=== PATIENT | male | born 1965 | race Caucasian/White ===

== ENCOUNTER 2016-12-18 10:42 | Inpatient (IN) | payer OTHER ==
[~2016-12-18] VITALS: Ht 177.8 cm; Wt 145.9 kg
[2016-12-18 10:53] VITALS: BP 139/65; PULSE 80; RESP 15; TEMP 98; O2SAT 98
[2016-12-18] MEDS ORDERED: SODIUM CHLOR 0.9% 1000 ML INJ 1,000 ML IV SCH (10:56)
[2016-12-18] MEDS ORDERED: HYDROmorphone HCL PF 1 MG/ML VIAL IV PUSH ONE ×2 (11:00→12:30)
[2016-12-18] MEDS ORDERED: DIPHTH/TETANUS/ACEL PERTUSSIS (BOOSTER) 0.5 ML VIAL/PFS IM ONE (11:00)
[2016-12-18] MEDS ORDERED: ceFAZolin 2 GM PREMIX 50 ML IV ONE (11:00)
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
[2016-12-18] MEDS ORDERED: HYDROmorphone HCL PF 2 MG/ML VIAL IV PUSH ONE (11:15)
[2016-12-18 11:25] VITALS: BP 151/67; PULSE 86; RESP 15; O2SAT 98
[2016-12-18 11:27] LABS: AUTOMATED NEUTROPHIL # 7.3 TH/MM3 (1.8-7.7); BASOPHIL # 0.1 TH/MM3 (0-0.2); BASOPHIL % 1.2 % (0.0-2.0); EOSINOPHIL # 0.2 TH/MM3 (0-0.4); EOSINOPHIL % 1.4 % (0.0-4.0); HEMATOCRIT 42.4 % (39.0-51.0); HEMO FLAGS DIFF FINAL; LYMPH % 31.2 % (9.0-44.0); LYMPHOCYTE # 3.8 TH/MM3 (1.0-4.8); MEAN CELL VOLUME 87.9 FL (80.0-100.0); MEAN CORPUSCULAR HEMOGLOBIN 30.1 PG (27.0-34.0); MEAN CORPUSCULAR HGB CONC 34.2 % (32.0-36.0); MONO % 6.6 % (0.0-8.0); NEUT % 59.6 % (16.0-70.0); PLATELET COUNT 304 TH/MM3 (150-450); RED BLOOD COUNT 4.82 MIL/MM3 (4.50-5.90); RED CELL DISTRIBUTION WIDTH 13.2 % (11.6-17.2); WHITE BLOOD COUNT 12.3 TH/MM3 (4.0-11.0)
[2016-12-18 11:38] LABS: APTT (PATIENT) 25.7 SEC (24.3-30.1); PROTHROMBIN TIME - PATIENT 11.3 SEC (9.8-11.6)
[2016-12-18 11:43] LABS: BICARBONATE 24.3 MEQ/L (21.0-32.0); POTASSIUM 3.5 MEQ/L (3.5-5.1)
[2016-12-18] MEDS ORDERED: PROPOFOL 200 MG/20 ML AMP IV ONE (12:00)
[2016-12-18] MEDS ORDERED: LACTATED RINGER'S 1000 ML INJ 1,000 ML IV ONE (12:00)
[2016-12-18] MEDS ORDERED: PHENYLEPH/NS 1000 MCG/10 ML SYR IV ONE (12:00)
[2016-12-18] MEDS ORDERED: ONDANSETRON HCL 4 MG/2 ML VIAL IV PUSH ONE (12:00)
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
[2016-12-18 12:19] VITALS: BP 185/77; PULSE 92; RESP 17; O2SAT 98
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
[2016-12-18] MEDS ORDERED: ONDANSETRON HCL 4 MG/2 ML VIAL IV PUSH PRN (14:00)
[2016-12-18] MEDS ORDERED: HYDROmorphone HCL PF 1 MG/ML VIAL IV PUSH PRN (14:00)
[2016-12-18 14:03] VITALS: BP 174/75; PULSE 85; RESP 18; O2SAT 98
[2016-12-18] MEDS: SODIUM CHLOR 0.9% 1000 ML INJ 1,000 ML IV SCH ×3 (15:40→21:25)
[2016-12-18] MEDS ORDERED: ENALAPRILAT 1.25 MG/ML VIAL IV PUSH PRN (15:45)
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
[2016-12-18] MEDS ORDERED: FAMOTIDINE 20 MG/2 ML VIAL ONE (16:45)
[2016-12-18] MEDS ORDERED: MIDAZOLAM HCL 2 MG/2 ML VIAL ONE (16:45)
[2016-12-18] MEDS ORDERED: fentaNYL CITRATE 250 MCG/5 ML AMP ONE ×2 (16:45→18:59)
[2016-12-18] MEDS ORDERED: DEXAMETHASONE SOD PHOS 4 MG/ML VIAL ONE (16:45)
[2016-12-18] MEDS ORDERED: BUPIVACAINE HCL PF 0.25% 30 ML VIAL ONE (16:48)
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
[2016-12-18] MEDS ORDERED: ceFAZolin INJ 1,000 MG VIAL ONE (17:02)
[2016-12-18] MEDS ORDERED: GENTAMICIN SULFATE 80 MG/2 ML VIAL ONE ×4 (17:02→18:03)
--- NOTE | 2016-12-18 17:03 | EKG ---
Date Performed: 12/18/2016 Time Performed: 16:46:54 PTAGE: 51 years EKG: Sinus rhythm NORMAL ECG NO PREVIOUS TRACING DOCTOR: Dayo Schneider Interpretating Date/Time 12/18/2016 17:02:13
[2016-12-18] MEDS: GENTAMICIN 80 MG PREMIX 100 ML IV SCH (18:00)
[2016-12-18] MEDS ORDERED: MORPHINE SULFATE 4 MG/ML INJ ONE (18:59)
[2016-12-18] MEDS ORDERED: *morphine SULFATE 8 MG/ML PERIprocedure ONLY ONE (19:03)
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
[2016-12-18] MEDS: HYDROmorphone HCL PF 1 MG/ML VIAL IV PUSH PRN (19:15)
[2016-12-18] MEDS ORDERED: *HYDROmorphone PF 1 MG VIAL PERIprocedural Use ONLY ONE (19:37)
[2016-12-18] MEDS ORDERED: CEFAZOLIN INJ 2,000 MG in SODIUM CHLORIDE 0.9% INJ 100 ML IV SCH (20:00)
--- NOTE | 2016-12-18 20:16 | RADRPT ---
EXAM DATE/TIME: 12/18/2016 19:04 [facility] COMPARISON: MRI FOOT LEFT W/O CONTRAST, December 18, 2016, 14:22. ANKLE LEFT COMPLETE ([id number]), December 18, 2016, 19 :12. INDICATIONS : Foot pain. MEDICAL HISTORY : None. SURGICAL HISTORY : None. ENCOUNTER: Initial ACUITY: 1 day PAIN SCORE: 0/10 LOCATION: Left foot FINDINGS: The fracture is identified on the patient's prior MRI are not clearly visualized and bony detail is o bscured by casting material. The alignment however is anatomical. Calcaneal spur is present at the at tachment site of the plantar aponeurosis. CONCLUSION: Fractures identified on the patient's prior MRI are not clearly visualized, however alignment is allen omical. Song Canas MD on December 18, 2016 at 20:13 Board Certified Radiologist. This report was verified electronically.
--- NOTE | 2016-12-18 20:21 | RADRPT ---
EXAM DATE/TIME: 12/18/2016 19:12 [facility] COMPARISON: FOOT LEFT COMPLETE ([id number]), December 18, 2016, 19:04. MRI FOOT LEFT W/O CONTRAST, December 18, 2016, 14: 22. MRI ANKLE LEFT W/O CONTRAST, December 18, 2016, 14:22. INDICATIONS : Ankle pain. MEDICAL HISTORY : None. SURGICAL HISTORY : None. ENCOUNTER: Initial ACUITY: 1 day PAIN SCORE: 0/10 LOCATION: Left ankle FINDINGS: The fractures identified on the patient's MRI examination are not visualized, however alignment is an atomical. Calcaneal spur is present at the attachment site of the plantar aponeurosis. CONCLUSION: The fractures identified on the patient's MRI examination are not visualized, however alignment is an atomical. Song Canas MD on December 18, 2016 at 20:17 Board Certified Radiologist. This report was verified electronically.
[2016-12-18 20:50] VITALS: BP 141/67; PULSE 85; RESP 24; TEMP 97.4; O2SAT 95
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
[2016-12-18] MEDS: ACETAMINOPHEN/HYDROcodone 325 MG/10 MG TAB PO PRN (21:26)
[2016-12-18 21:56] VITALS: O2SAT 95
[2016-12-19] VITALS (8 sets, daily range): BP systolic 113–142; BP diastolic 55–73; PULSE 70–94; RESP 16–20; TEMP 96.4–98; O2SAT 93–98
[2016-12-19] MEDS ORDERED: CEFAZOLIN INJ 2,000 MG in SODIUM CHLORIDE 0.9% INJ 100 ML IV SCH ×2
[2016-12-19] MEDS ORDERED: cefTRIAXone 2 GM PREMIX INJ 50 ML IV SCH (00:02)
[2016-12-19] MEDS: ceFAZolin 2 GM PREMIX 50 ML IV SCH ×4 (00:11→23:17)
[2016-12-19] MEDS: HYDROmorphone HCL PF 1 MG/ML VIAL IV PUSH PRN ×8 (00:11→23:15)
[2016-12-19] MEDS: GENTAMICIN 80 MG PREMIX 100 ML IV SCH ×3 (02:51→17:24)
[2016-12-19] MEDS: ACETAMINOPHEN/HYDROcodone 325 MG/10 MG TAB PO PRN ×4 (02:51→22:03)
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
[2016-12-19] MEDS: SODIUM CHLORIDE 0.9% FLUSH 10 ML FLUSH IVF PRN (14:07)
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
[2016-12-19] MEDS: SODIUM CHLOR 0.9% 1000 ML INJ 1,000 ML IV SCH (19:04)
[2016-12-19] MEDS ORDERED: Gentamicin Consult Pharmacy 1 EA OTHER SCH (20:15)
[2016-12-19] MEDS ORDERED: GENTAMICIN INJ 150 MG in SODIUM CHLORIDE 0.9% INJ 100 ML IV ONE (22:00)
[2016-12-19] MEDS: GENTAMICIN INJ 200 MG in SODIUM CHLORIDE 0.9% INJ 100 ML IV SCH (22:00)
[2016-12-19] MEDS ORDERED: POVIDONE IODINE 5% (ANTISEPSIS KIT) 4 APPLICATIONS EACH NARE PRN (23:45)
[2016-12-19] MEDS ORDERED: SODIUM CHLORID 0.9% 500 ML IV PRN (23:45)
[2016-12-19] MEDS ORDERED: LACTATED RINGER'S 1000 ML IV PRN (23:45)
[2016-12-19] MEDS ORDERED: CHLORHEXIDINE GLUCONATE 2 % 1 PACK (2 CLOTHS) TOPICAL PRN (23:45)
[2016-12-19] MEDS ORDERED: INSULIN HUMAN REGULAR 1,000 UNITS/10 ML VIAL SQ PRN (23:45)
[2016-12-19] MEDS ORDERED: METOPROLOL TARTRATE 25 MG TAB PO PRN (23:45)
[2016-12-20] VITALS: BP 118/59; PULSE 76; RESP 18; TEMP 96.5; O2SAT 96
[2016-12-20] MEDS: ACETAMINOPHEN/HYDROcodone 325 MG/10 MG TAB PO PRN ×4 (02:00→18:38)
[2016-12-20] MEDS: HYDROmorphone HCL PF 1 MG/ML VIAL IV PUSH PRN ×5 (03:12→17:32)
[2016-12-20 04:45] VITALS: BP 117/57; PULSE 73; RESP 20; TEMP 96.8; O2SAT 94
[2016-12-20] MEDS ORDERED: BUPIVACAINE HCL PF 0.5% 30 ML VIAL ONE (07:59)
[2016-12-20] MEDS ORDERED: GENTAMICIN SULFATE 80 MG/2 ML VIAL ONE (07:59)
[2016-12-20 08:00] VITALS: BP 121/60; PULSE 88; RESP 18; TEMP 97.2; O2SAT 98
[2016-12-20] MEDS: ceFAZolin 2 GM PREMIX 50 ML IV SCH ×2 (08:00→16:18)
[2016-12-20 08:01] LABS: ALKALINE PHOSPHATASE 69 U/L (45-117); ALT (GPT) 21 U/L (12-78); ANION GAP 6 MEQ/L (5-15); AST (GOT) 20 U/L (15-37); BICARBONATE 32.1 MEQ/L (21.0-32.0); BLOOD UREA NITROGEN 10 MG/DL (7-18); CHLORIDE 106 MEQ/L (98-107); GLOMERULAR FILTRATION RATE 90 ML/MIN (>89); SODIUM (NA) 144 MEQ/L (136-145); TOTAL BILIRUBIN ADULT 0.3 MG/DL (0.2-1.0)
[2016-12-20] MEDS ORDERED: fentaNYL CITRATE 250 MCG/5 ML AMP ONE (08:43)
[2016-12-20] MEDS ORDERED: ACETAMINOPHEN 1000 MG/100 ML VIAL IV ONE (08:44)
[2016-12-20] MEDS ORDERED: FAMOTIDINE 20 MG/2 ML VIAL ONE (08:44)
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
[2016-12-20] MEDS ORDERED: NEOMYCIN/POLYMYXIN 1 ML G.U. IRRIGANT TOPICAL ONE (09:29)
[2016-12-20] MEDS ORDERED: PROPOFOL 200 MG/20 ML AMP IV ONE (09:52)
[2016-12-20] MEDS ORDERED: ONDANSETRON HCL 4 MG/2 ML VIAL IV PUSH ONE (09:52)
[2016-12-20] MEDS ORDERED: GENTAMICIN INJ 200 MG in SODIUM CHLORIDE 0.9% INJ 100 ML IV SCH (10:00)
[2016-12-20] MEDS ORDERED: BUPIVACAINE HCL PF 0.5% 30 ML VIAL INFIL ONE (10:00)
[2016-12-20] MEDS: GENTAMICIN INJ 200 MG in SODIUM CHLORIDE 0.9% INJ 100 ML IV SCH ×2 (10:00→22:05)
[2016-12-20] MEDS ORDERED: ceFAZolin INJ 1,000 MG VIAL IV ONE (10:24)
[2016-12-20] MEDS ORDERED: *morphine SULFATE 8 MG/ML PERIprocedure ONLY ONE (11:14)
[2016-12-20 12:00] VITALS: BP 143/73; PULSE 98; RESP 18; TEMP 97.6; O2SAT 98
[2016-12-20] MEDS ORDERED: hydrALAZINE HCL 10 MG TAB PO PRN (13:30)
[2016-12-20] MEDS ORDERED: cloNIDine HCL 0.1 MG TAB PO PRN (13:30)
[2016-12-20 16:00] VITALS: BP 134/61; PULSE 74; RESP 18; TEMP 97.8; O2SAT 98
[2016-12-20] MEDS: SODIUM CHLOR 0.9% 1000 ML INJ 1,000 ML IV SCH (16:00)
[2016-12-20 19:18] VITALS: BP 127/69; PULSE 89; RESP 21; TEMP 98.5; O2SAT 97
[2016-12-20] MEDS ORDERED: PHARMACY ORDERED LAB ONE (23:00)
[2016-12-21] VITALS (8 sets, daily range): BP systolic 137–152; BP diastolic 56–72; PULSE 67–77; RESP 18–21; TEMP 96–98.9; O2SAT 94–97
[2016-12-21] MEDS: ceFAZolin 2 GM PREMIX 50 ML IV SCH ×4 (00:02→22:58)
[2016-12-21] MEDS: SODIUM CHLOR 0.9% 1000 ML INJ 1,000 ML IV SCH ×3 (02:00→22:00)
[2016-12-21] MEDS: HYDROmorphone HCL PF 1 MG/ML VIAL IV PUSH PRN ×3 (04:21→11:06)
[2016-12-21] MEDS: ACETAMINOPHEN/HYDROcodone 325 MG/10 MG TAB PO PRN (05:43)
[2016-12-21 06:00] LABS: AUTOMATED NEUTROPHIL # 7.2 TH/MM3 (1.8-7.7); BASOPHIL # 0.2 TH/MM3 (0-0.2); BASOPHIL % 1.4 % (0.0-2.0); EOSINOPHIL # 0.2 TH/MM3 (0-0.4); EOSINOPHIL % 1.7 % (0.0-4.0); HEMATOCRIT 30.7 % (39.0-51.0); HEMO FLAGS DIFF FINAL; LYMPH % 24.3 % (9.0-44.0); LYMPHOCYTE # 2.7 TH/MM3 (1.0-4.8); MEAN CELL VOLUME 90.3 FL (80.0-100.0); MEAN CORPUSCULAR HEMOGLOBIN 30.5 PG (27.0-34.0); MEAN CORPUSCULAR HGB CONC 33.7 % (32.0-36.0); MONO % 7.5 % (0.0-8.0); NEUT % 65.1 % (16.0-70.0); PLATELET COUNT 179 TH/MM3 (150-450); RED CELL DISTRIBUTION WIDTH 13.3 % (11.6-17.2)
[2016-12-21 06:17] LABS: BICARBONATE 27.9 MEQ/L (21.0-32.0); MAGNESIUM 1.9 MG/DL (1.5-2.5)
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
[2016-12-21] MEDS: GENTAMICIN INJ 200 MG in SODIUM CHLORIDE 0.9% INJ 100 ML IV SCH ×2 (08:39→22:58)
[2016-12-21] MEDS ORDERED: PHARMACY ORDERED LAB ONE ×2 (09:45→21:45)
[2016-12-21] MEDS: DOCUSATE SODIUM 50 MG/SENNA 8.6 MG TAB PO SCH ×2 (11:00→21:00)
[2016-12-21] MEDS ORDERED: MAGNESIUM HYDROXIDE SUSP 30 ML CUP PO PRN (11:00)
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
[2016-12-21 19:59] LABS: HEMATOCRIT 31.5 % (39.0-51.0); REVIEW FLAG FINAL
[2016-12-22 00:21] VITALS: BP 146/66; PULSE 71; RESP 20; TEMP 97.1; O2SAT 97
[2016-12-22 07:39] LABS: HEMATOCRIT 32.2 % (39.0-51.0); MEAN CELL VOLUME 89.1 FL (80.0-100.0); MEAN CORPUSCULAR HEMOGLOBIN 30.3 PG (27.0-34.0); PLATELET COUNT 211 TH/MM3 (150-450); RED BLOOD COUNT 3.61 MIL/MM3 (4.50-5.90); RED CELL DISTRIBUTION WIDTH 13.3 % (11.6-17.2); REVIEW FLAG FINAL; WHITE BLOOD COUNT 9.4 TH/MM3 (4.0-11.0)
[2016-12-22] MEDS: DOCUSATE SODIUM 50 MG/SENNA 8.6 MG TAB PO SCH ×2 (07:51→21:46)
[2016-12-22] MEDS: ceFAZolin 2 GM PREMIX 50 ML IV SCH ×2 (07:51→16:45)
[2016-12-22] MEDS: SODIUM CHLOR 0.9% 1000 ML INJ 1,000 ML IV SCH ×2 (07:55→18:00)
[2016-12-22 08:00] VITALS: BP 146/68; PULSE 73; RESP 16; TEMP 97.8; O2SAT 96
[2016-12-22] MEDS: GENTAMICIN INJ 200 MG in SODIUM CHLORIDE 0.9% INJ 100 ML IV SCH ×2 (09:49→21:53)
[2016-12-22 11:57] VITALS: BP 124/69; PULSE 77; RESP 16; TEMP 97.3; O2SAT 94
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
[2016-12-22 17:00] VITALS: BP 131/62; PULSE 84; RESP 16; TEMP 96.3; O2SAT 97
--- NOTE | 2016-12-22 17:25 | RADRPT ---
EXAM DATE/TIME: 12/22/2016 13:14 [facility] COMPARISON: CT ANKLE LEFT W/O CONTRAST, December 18, 2016, 20:24. ANKLE LEFT COMPLETE ([id number]), December 18, 2016, 19 :12. INDICATIONS : Left ankle pain MEDICAL HISTORY : None. SURGICAL HISTORY : None. ENCOUNTER: Subsequent ACUITY: 4 - 6 days PAIN SCORE: 10/10 LOCATION: Left ankle FINDINGS: 3 images of the left ankle show postsurgical changes involving the calcaneus. No fracture or dislocat ion is seen on these images. No radiopaque foreign bodies observed. Surgical clips are seen. No corti damian destruction observed. CONCLUSION: Postsurgical changes. No acute abnormality appreciated. Jose Mackey Jr., MD on December 22, 2016 at 16:15 Board Certified Radiologist. This report was verified electronically.
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
--- NOTE | 2016-12-22 19:09 | RADRPT ---
EXAM DATE/TIME: 12/22/2016 15:57 [facility] COMPARISON: MRI ANKLE LEFT W/O CONTRAST, December 18, 2016, 14:22. CT ANKLE LEFT W/O CONTRAST, December 18, 2016, 20:2 4. INDICATIONS : Fracture. Post-operative open calcaneal fracture. MEDICAL HISTORY : Ulcers. SURGICAL HISTORY : Right fourth digit. Left ankle. ENCOUNTER: Subsequent ACUITY: 4-6 days PAIN SCORE: 5/10 LOCATION: Left ankle TECHNIQUE: Multiplanar, multisequence MRI examination was performed without contrast. FINDINGS: Large/broad medial soft tissue injury again noted overlying the medial malleolus and the posteromedia l aspect of the calcaneus. Fractures of both of these bones are again noted. Calcaneal fracture invol ves the far medial portion of the proximal plantar fascia. Patient has a type II accessory navicular. The medial aspect of the sun'aq portion of the bone has a minimally displaced fracture, unchanged, a nd does extend into the synchondrosis. An approximately 3.6 cm tear is seen of the tibialis posterior tendon centered around the m edial malleolus. Diffuse subcutaneous edema but especially medially. A 21 x 28 mm fluid collection is seen adjacent to the calcaneal fracture defect. CONCLUSION: 1. Fracture defects of the medial malleolus and posteromedially of the calcaneus are again noted. The re is a large overlying soft tissue injury and edema/non-organized fluid. An organized fluid collecti on measuring about 2.1 x 2.8 cm in size is seen adjacent to the calcaneal fracture defect. 2. Minimally displaced fracture medially of the navicular as above. Patient also has a type II access ory navicular. Distal tibialis posterior is intact but is transected more proximally at the level of the medial malleolus and about 36 mm . 3. No meaningful fibers visualized of the anterior or posterior portions of the tibiotalar component of the deltoid ligament complex. Chauncey Solorio MD on December 22, 2016 at 18:54 Board Certified Radiologist. This report was verified electronically.
[2016-12-22 20:20] VITALS: BP 145/74; PULSE 96; RESP 17; TEMP 98.5; O2SAT 92
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
[2016-12-23] VITALS (7 sets, daily range): BP systolic 118–133; BP diastolic 59–70; PULSE 74–95; RESP 18–22; TEMP 95.7–98.2; O2SAT 93–97
[2016-12-23] MEDS: ceFAZolin 2 GM PREMIX 50 ML IV SCH ×3 (01:01→15:30)
[2016-12-23] MEDS: HYDROmorphone HCL PF 1 MG/ML VIAL IV PUSH PRN ×3 (01:05→21:54)
[2016-12-23] MEDS: SODIUM CHLOR 0.9% 1000 ML INJ 1,000 ML IV SCH ×2 (04:00→14:00)
[2016-12-23] MEDS ORDERED: METOPROLOL TARTRATE 25 MG TAB PO PRN (05:30)
[2016-12-23] MEDS ORDERED: INSULIN HUMAN REGULAR 1,000 UNITS/10 ML VIAL SQ PRN (05:30)
[2016-12-23] MEDS ORDERED: CHLORHEXIDINE GLUCONATE 2 % 1 PACK (2 CLOTHS) TOPICAL PRN (05:30)
[2016-12-23] MEDS ORDERED: POVIDONE IODINE 5% (ANTISEPSIS KIT) 4 APPLICATIONS EACH NARE PRN (05:30)
[2016-12-23] MEDS ORDERED: LACTATED RINGER'S 1000 ML IV PRN (05:30)
[2016-12-23] MEDS ORDERED: SODIUM CHLORID 0.9% 500 ML IV PRN (05:30)
[2016-12-23] MEDS: DOCUSATE SODIUM 50 MG/SENNA 8.6 MG TAB PO SCH ×2 (07:56→20:37)
[2016-12-23] MEDS: GENTAMICIN INJ 200 MG in SODIUM CHLORIDE 0.9% INJ 100 ML IV SCH ×2 (08:03→22:00)
[2016-12-23 08:44] LABS: BICARBONATE 30.6 MEQ/L (21.0-32.0); POTASSIUM 4.2 MEQ/L (3.5-5.1)
[2016-12-23 08:47] LABS: AUTOMATED NEUTROPHIL # 7.6 TH/MM3 (1.8-7.7); BASOPHIL # 0.1 TH/MM3 (0-0.2); BASOPHIL % 0.9 % (0.0-2.0); EOSINOPHIL # 0.6 TH/MM3 (0-0.4); EOSINOPHIL % 5.3 % (0.0-4.0); LYMPH % 23.5 % (9.0-44.0); LYMPHOCYTE # 2.8 TH/MM3 (1.0-4.8); MEAN CELL VOLUME 89.9 FL (80.0-100.0); MEAN CORPUSCULAR HEMOGLOBIN 29.1 PG (27.0-34.0); MEAN CORPUSCULAR HGB CONC 32.4 % (32.0-36.0); MONO % 6.7 % (0.0-8.0); NEUT % 63.6 % (16.0-70.0); PLATELET COUNT 198 TH/MM3 (150-450); RED CELL DISTRIBUTION WIDTH 13.1 % (11.6-17.2); WHITE BLOOD COUNT 11.9 TH/MM3 (4.0-11.0)
[2016-12-23 09:09] LABS: HEMO FLAGS AUTO DIFF
[2016-12-23 09:10] LABS: PLATELET ESTIMATE SMEAR NORMAL (NORMAL); PLATELET MORPHOLOGY ENLARGED (NORMAL); SCAN/DIFF AUTO DIFF CONFIRMED
[2016-12-23] MEDS ORDERED: ONDANSETRON HCL 4 MG/2 ML VIAL IV PUSH ONE (11:26)
[2016-12-23] MEDS ORDERED: PROPOFOL 200 MG/20 ML AMP IV ONE (11:26)
[2016-12-23] MEDS ORDERED: PHENYLEPH/NS 1000 MCG/10 ML SYR IV ONE (11:26)
[2016-12-23 13:29] LABS: BLOOD, URINE NEG (NEG); COMMENT (UR) CULT NOT INDICATED; CULTURE IF INDICATED CULT NOT INDICATED; GLUCOSE,URINE NEG (NEG); KETONE, URINE NEG (NEG); NITRITE,URINE NEG (NEG); URINE COLOR YELLOW (YELLW/STRAW)
[2016-12-23 13:30] LABS: AMPHETAMINE, URINE NEG (NEG); BARBITURATES, URINE NEG (NEG); COCAINE, URINE NEG (NEG)
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
[2016-12-23] MEDS ORDERED: GENTAMICIN SULFATE 80 MG/2 ML VIAL ONE (17:58)
[2016-12-23] MEDS ORDERED: BUPIVACAINE HCL PF 0.5% 30 ML VIAL ONE (18:02)
[2016-12-23] MEDS ORDERED: fentaNYL CITRATE 250 MCG/5 ML AMP ONE (18:08)
[2016-12-23] MEDS ORDERED: MIDAZOLAM HCL 2 MG/2 ML VIAL ONE (18:08)
[2016-12-23] MEDS ORDERED: HYDROmorphone HCL PF 2 MG/ML VIAL ONE (18:49)
[2016-12-23] MEDS ORDERED: MORPHINE SULFATE 4 MG/ML INJ ONE (19:15)
[2016-12-23] MEDS ORDERED: *MEPERIDINE 25 MG INJ VIAL PERIprocedural Use ONLY ONE (19:23)
[2016-12-23] MEDS ORDERED: *morphine SULFATE 8 MG/ML PERIprocedure ONLY ONE ×2 (19:34→19:46)
[2016-12-23] MEDS ORDERED: DO NOT ADM ANY ANTICOAGULANT DRUGS PRN (20:00)
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
[2016-12-24] VITALS (7 sets, daily range): BP systolic 119–153; BP diastolic 59–91; PULSE 71–87; RESP 15–20; TEMP 96.8–97.8; O2SAT 92–99
[2016-12-24] MEDS: HYDROmorphone HCL PF 1 MG/ML VIAL IV PUSH PRN ×7 (02:11→23:30)
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
[2016-12-24] MEDS: ceFAZolin 2 GM PREMIX 50 ML IV SCH ×5 (07:54→22:53)
[2016-12-24] MEDS: DOCUSATE SODIUM 50 MG/SENNA 8.6 MG TAB PO SCH ×2 (07:54→20:33)
[2016-12-24] MEDS: SODIUM CHLOR 0.9% 1000 ML INJ 1,000 ML IV SCH ×2 (10:00)
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
[2016-12-25] VITALS (9 sets, daily range): BP systolic 89–155; BP diastolic 56–72; PULSE 62–105; RESP 19–22; TEMP 95.6–97.7; O2SAT 92–97
[2016-12-25] MEDS: HYDROmorphone HCL PF 1 MG/ML VIAL IV PUSH PRN ×6 (02:22→22:31)
[2016-12-25 05:45] LABS: AUTOMATED NEUTROPHIL # 5.5 TH/MM3 (1.8-7.7); BASOPHIL # 0.1 TH/MM3 (0-0.2); BASOPHIL % 1.1 % (0.0-2.0); EOSINOPHIL # 0.5 TH/MM3 (0-0.4); EOSINOPHIL % 4.9 % (0.0-4.0); HEMATOCRIT 32.8 % (39.0-51.0); HEMO FLAGS DIFF FINAL; LYMPH % 32.4 % (9.0-44.0); LYMPHOCYTE # 3.3 TH/MM3 (1.0-4.8); MEAN CELL VOLUME 90.3 FL (80.0-100.0); MEAN CORPUSCULAR HEMOGLOBIN 29.7 PG (27.0-34.0); MEAN CORPUSCULAR HGB CONC 32.8 % (32.0-36.0); MONO % 6.9 % (0.0-8.0); NEUT % 54.7 % (16.0-70.0); PLATELET COUNT 240 TH/MM3 (150-450); RED BLOOD COUNT 3.63 MIL/MM3 (4.50-5.90); RED CELL DISTRIBUTION WIDTH 13.3 % (11.6-17.2); WHITE BLOOD COUNT 10.1 TH/MM3 (4.0-11.0)
[2016-12-25] MEDS: SODIUM CHLOR 0.9% 1000 ML INJ 1,000 ML IV SCH (06:00)
[2016-12-25 06:21] LABS: BICARBONATE 33.8 MEQ/L (21.0-32.0); MAGNESIUM 2.2 MG/DL (1.5-2.5); POTASSIUM 4.3 MEQ/L (3.5-5.1)
[2016-12-25] MEDS: DOCUSATE SODIUM 50 MG/SENNA 8.6 MG TAB PO SCH ×2 (09:00→19:58)
[2016-12-25] MEDS: ceFAZolin 2 GM PREMIX 50 ML IV SCH (09:12)
[2016-12-25] MEDS ORDERED: PROPOFOL 1000 MG/100 ML BTL IV ONE (12:00)
[2016-12-25] MEDS ORDERED: ONDANSETRON HCL 4 MG/2 ML VIAL IV PUSH ONE (12:00)
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
[2016-12-25] MEDS ORDERED: Vancomycin Consult Pharmacy 1 EA OTHER SCH (14:15)
[2016-12-25] MEDS ORDERED: BUPIVACAINE HCL PF 0.25% 30 ML VIAL ONE (14:16)
[2016-12-25] MEDS ORDERED: ceFAZolin INJ 1,000 MG VIAL ONE (14:16)
[2016-12-25] MEDS ORDERED: LIDOCAINE HCL 2% 50 ML VIAL ONE (14:16)
[2016-12-25] MEDS ORDERED: SODIUM CHLORIDE 0.9% 20 ML VIAL ONE (14:16)
[2016-12-25] MEDS ORDERED: GENTAMICIN SULFATE 80 MG/2 ML VIAL ONE (14:17)
[2016-12-25] MEDS ORDERED: ceFAZolin 2 GM PREMIX 50 ML ONE (15:19)
--- NOTE | 2016-12-25 17:01 | HHI.PR ---
Addendum to Inpatient Note Addendum Reason: Additional Documentation Additional Information Pt in OR. Start Cefepime IV (GNR intraop cultures) Start Vanco IV(Coag neg intra op specimen) Follow cultures Follow clinically. Will see pt in am. Please call if any change in clinical condition in the interim. Gabi Zamudio MD December 25, 2016 17:00
[2016-12-25] MEDS ORDERED: *morphine SULFATE 8 MG/ML PERIprocedure ONLY ONE ×2 (17:20→17:29)
[2016-12-25] MEDS: VANCOMYCIN INJ 2,000 MG in SODIUM CHLORID 0.9% 500 ML INJ 500 ML IV SCH (18:30)
[2016-12-25] MEDS: traZODone HCL 100 MG TAB PO SCH (19:58)
[2016-12-25] MEDS: CEFEPIME INJ 2,000 MG in SODIUM CHLORIDE 0.9% INJ 100 ML IV SCH (23:32)
[2016-12-26] MEDS: HYDROmorphone HCL PF 1 MG/ML VIAL IV PUSH PRN ×8 (01:20→23:54)
[2016-12-26 03:36] VITALS: BP 125/57; PULSE 78; RESP 19; TEMP 96.7; O2SAT 93
[2016-12-26] MEDS: VANCOMYCIN INJ 2,000 MG in SODIUM CHLORID 0.9% 500 ML INJ 500 ML IV SCH ×2 (06:00→17:38)
[2016-12-26] MEDS: DOCUSATE SODIUM 50 MG/SENNA 8.6 MG TAB PO SCH ×2 (07:47→20:38)
[2016-12-26 07:55] VITALS: BP 131/63; PULSE 87; RESP 20; TEMP 98.5; O2SAT 93
[2016-12-26] MEDS: CEFEPIME INJ 2,000 MG in SODIUM CHLORIDE 0.9% INJ 100 ML IV SCH ×3 (08:00→23:50)
[2016-12-26 11:10] VITALS: BP 102/50; PULSE 85; RESP 20; TEMP 98.2; O2SAT 95
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
[2016-12-26 16:53] VITALS: BP 109/57; PULSE 81; RESP 20; TEMP 97.4; O2SAT 93
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
[2016-12-26 20:20] VITALS: BP 133/65; PULSE 78; RESP 19; TEMP 95.8; O2SAT 96
[2016-12-26] MEDS: traZODone HCL 100 MG TAB PO SCH (20:39)
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
[2016-12-26] MEDS: SODIUM CHLOR 0.9% 1000 ML INJ 1,000 ML IV SCH (22:00)
[2016-12-26 23:50] VITALS: BP 129/64; PULSE 78; RESP 18; TEMP 98.8; O2SAT 95
[2016-12-26] MEDS: TEMAZEPAM 15 MG CAP PO PRN (23:54)
[2016-12-27] MEDS: HYDROmorphone HCL PF 1 MG/ML VIAL IV PUSH PRN ×7 (03:55→23:24)
[2016-12-27] MEDS ORDERED: PHARMACY ORDERED LAB ONE (05:45)
[2016-12-27] MEDS: VANCOMYCIN INJ 2,000 MG in SODIUM CHLORID 0.9% 500 ML INJ 500 ML IV SCH ×2 (05:48→18:15)
[2016-12-27 08:00] VITALS: BP 112/60; PULSE 73; RESP 18; TEMP 98.3; O2SAT 100
[2016-12-27] MEDS: CEFEPIME INJ 2,000 MG in SODIUM CHLORIDE 0.9% INJ 100 ML IV SCH ×3 (08:50→23:24)
[2016-12-27] MEDS: SODIUM CHLOR 0.9% 1000 ML INJ 1,000 ML IV SCH ×2 (08:55→18:15)
[2016-12-27] MEDS: DOCUSATE SODIUM 50 MG/SENNA 8.6 MG TAB PO SCH ×2 (08:56→20:12)
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
[2016-12-27 12:00] VITALS: BP 121/63; PULSE 83; RESP 18; TEMP 98.1; O2SAT 96
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
[2016-12-27 16:00] VITALS: BP 122/58; PULSE 84; RESP 18; TEMP 96.7; O2SAT 96
[2016-12-27] MEDS ORDERED: SODIUM CHLORID 0.9% 500 ML IV PRN (19:00)
[2016-12-27] MEDS ORDERED: POVIDONE IODINE 5% (ANTISEPSIS KIT) 4 APPLICATIONS EACH NARE PRN (19:00)
[2016-12-27] MEDS ORDERED: CHLORHEXIDINE GLUCONATE 2 % 1 PACK (2 CLOTHS) TOPICAL PRN (19:00)
[2016-12-27] MEDS ORDERED: METOPROLOL TARTRATE 25 MG TAB PO PRN (19:00)
[2016-12-27] MEDS ORDERED: LACTATED RINGER'S 1000 ML IV PRN (19:00)
[2016-12-27] MEDS ORDERED: INSULIN HUMAN REGULAR 1,000 UNITS/10 ML VIAL SQ PRN (19:00)
[2016-12-27] MEDS: traZODone HCL 100 MG TAB PO SCH (20:12)
[2016-12-27 20:40] VITALS: BP 124/61; PULSE 84; RESP 17; TEMP 97.2; O2SAT 94
[2016-12-28 00:35] VITALS: BP 126/56; PULSE 85; RESP 17; TEMP 97.1; O2SAT 97
[2016-12-28] MEDS: HYDROmorphone HCL PF 1 MG/ML VIAL IV PUSH PRN ×6 (02:36→22:10)
[2016-12-28] MEDS ORDERED: PHARMACY ORDERED LAB ONE (05:45)
[2016-12-28] MEDS: VANCOMYCIN INJ 2,000 MG in SODIUM CHLORID 0.9% 500 ML INJ 500 ML IV SCH (07:18)
[2016-12-28] MEDS: SODIUM CHLOR 0.9% 1000 ML INJ 1,000 ML IV SCH ×2 (07:19→14:00)
[2016-12-28 08:00] VITALS: BP 122/78; PULSE 79; RESP 19; TEMP 97.7; O2SAT 96
[2016-12-28] MEDS: DOCUSATE SODIUM 50 MG/SENNA 8.6 MG TAB PO SCH ×2 (09:00→21:00)
[2016-12-28] MEDS ORDERED: FAMOTIDINE 20 MG/2 ML VIAL ONE (09:17)
[2016-12-28] MEDS ORDERED: DEXAMETHASONE SOD PHOS 4 MG/ML VIAL ONE (09:17)
[2016-12-28] MEDS ORDERED: *HYDROmorphone PF 1 MG VIAL PERIprocedural Use ONLY ONE (09:17)
[2016-12-28] MEDS ORDERED: MIDAZOLAM HCL 2 MG/2 ML VIAL ONE (09:18)
[2016-12-28] MEDS ORDERED: BUPIVACAINE HCL PF 0.5% 30 ML VIAL ONE (10:35)
[2016-12-28] MEDS ORDERED: GENTAMICIN SULFATE 80 MG/2 ML VIAL ONE (10:35)
[2016-12-28] MEDS ORDERED: SUGAMMADEX SODIUM 200 MG/2 ML VIAL IV PUSH ONE ×2 (10:40)
[2016-12-28] MEDS: CEFEPIME INJ 2,000 MG in SODIUM CHLORIDE 0.9% INJ 100 ML IV SCH ×2 (11:00→17:27)
[2016-12-28] MEDS ORDERED: GENTAMICIN SULFATE 80 MG/2 ML VIAL IRRIGATION ONE (11:05)
--- NOTE | 2016-12-28 11:36 | HHI.PR ---
Immediate Post Op Note Procedure Date: December 28, 2016 Pre Op Diagnosis: (1) Fracture, calcaneus, open (2) Laceration of left heel Post Op Diagnosis: Surgeon: Julianne Love Shop Assistant(s): None Procedure: 1) Left foot wound debridement 2) Irrigation, left foot. Findings: Consistent with diagnosis. Complications: None Estimated blood loss: Less than 5 cc Anesthesia: General Drains: None Patient to: PACU Patient Condition: Good Date/Time of Procedure: SEE SURGICAL CARE RECORD Julianne Love DPM December 28, 2016 11:36
[2016-12-28 11:42] VITALS: PULSE 88
[2016-12-28] MEDS ORDERED: fentaNYL CITRATE 250 MCG/5 ML AMP ONE ×2 (11:47→11:48)
[2016-12-28 12:00] VITALS: BP 131/72; PULSE 76; RESP 19; TEMP 97; O2SAT 96
[2016-12-28] MEDS ORDERED: PROPOFOL 200 MG/20 ML AMP IV ONE (12:00)
[2016-12-28] MEDS ORDERED: ONDANSETRON HCL 4 MG/2 ML VIAL IV PUSH ONE (12:00)
[2016-12-28] MEDS ORDERED: DO NOT ADM ANY ANTICOAGULANT DRUGS PRN (12:45)
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
[2016-12-28 16:00] VITALS: BP 138/75; PULSE 98; RESP 18; TEMP 96.6; O2SAT 95
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
[2016-12-28] MEDS: VANCOMYCIN 1,500 MG/NS 500 ML IV SCH ×2 (18:11)
[2016-12-28 20:25] VITALS: BP 137/60; PULSE 89; RESP 19; TEMP 97.4; O2SAT 94
[2016-12-28] MEDS: traZODone HCL 100 MG TAB PO SCH (20:59)
[2016-12-29] VITALS (7 sets, daily range): BP systolic 101–131; BP diastolic 55–66; PULSE 68–92; RESP 16–18; TEMP 96.2–98.3; O2SAT 93–99
[2016-12-29] MEDS: CEFEPIME INJ 2,000 MG in SODIUM CHLORIDE 0.9% INJ 100 ML IV SCH ×3 (00:19→16:16)
[2016-12-29] MEDS: HYDROmorphone HCL PF 1 MG/ML VIAL IV PUSH PRN ×7 (01:22→21:14)
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
[2016-12-29 05:48] LABS: AUTOMATED NEUTROPHIL # 9.1 TH/MM3 (1.8-7.7); BASOPHIL # 0.2 TH/MM3 (0-0.2); BASOPHIL % 1.4 % (0.0-2.0); EOSINOPHIL # 0.2 TH/MM3 (0-0.4); EOSINOPHIL % 1.3 % (0.0-4.0); HEMO FLAGS DIFF FINAL; LYMPH % 18.5 % (9.0-44.0); LYMPHOCYTE # 2.3 TH/MM3 (1.0-4.8); MEAN CELL VOLUME 89.9 FL (80.0-100.0); MEAN CORPUSCULAR HEMOGLOBIN 28.8 PG (27.0-34.0); MONO % 5.4 % (0.0-8.0); NEUT % 73.4 % (16.0-70.0); PLATELET COUNT 272 TH/MM3 (150-450); RED BLOOD COUNT 3.56 MIL/MM3 (4.50-5.90); RED CELL DISTRIBUTION WIDTH 13.4 % (11.6-17.2); WHITE BLOOD COUNT 12.3 TH/MM3 (4.0-11.0)
[2016-12-29] MEDS: VANCOMYCIN 1,500 MG/NS 500 ML IV SCH ×4 (05:57→19:58)
[2016-12-29] MEDS: DOCUSATE SODIUM 50 MG/SENNA 8.6 MG TAB PO SCH ×2 (07:44→19:58)
--- NOTE | 2016-12-29 08:20 | PD.POD ---
Subjective Pain scale used: 0-10 numeric scale Pain score: 7 Remarks Needs pain meds around the clock otherwise appears to understand the severity of his injury. He is requesting limb salvage at this point. Past Med/Surg/Social History Social History Smoking Status: Former Smoker Objective Vital Signs Vital Signs Date Time Temp Pulse Resp B/P Pulse Ox O2 Delivery O2 Flow Rate FiO2 12/29/16 05:00 16 12/29/16 04:35 96.7 68 18 101/58 93 12/29/16 00:25 97.0 84 18 123/57 94 12/28/16 23:50 16 12/28/16 20:32 Nasal Cannula 2.00 12/28/16 20:25 97.4 89 19 137/60 94 12/28/16 16:00 96.6 98 18 138/75 95 12/28/16 12:15 98.0 81 16 154/69 96 Nasal Cannula 2 12/28/16 12:00 84 16 172/70 96 Nasal Cannula 2 12/28/16 12:00 97.0 76 19 131/72 96 12/28/16 11:45 87 16 95 Nasal Cannula 2 12/28/16 11:42 88 12/28/16 11:42 98.0 88 16 156/92 100 Nasal Cannula 2 12/28/16 09:45 75 16 155/65 94 12/28/16 09:00 73 16 124/64 94 Coded Allergies: Penicillin (Verified Allergy, Unknown, 12/18/16) Medications and IVs Administered Medications Medications (Trade) Dose Ordered Sig/Jazmyn Route PRN Reason Start Time Stop Time Status Last Admin Dose Admin Sodium Chloride 2 ml 2 ml UNSCH PRN IVF FLUSH AFTER USING IV ACCESS 12/18/16 11:00 12/19/16 14:07 Sodium Chloride (NS 1000 ml Inj) 1,000 ml @ 100 mls/hr Q10H IV 12/18/16 14:00 12/28/16 07:19 Senna/Docusate Sodium (Gilda-Colace) 2 tab BID PO 12/21/16 11:00 12/26/16 07:47 Oxycodone HCl (Roxicodone) 5 mg Q4H PRN PO PAIN SCALE 1 TO 5 12/21/16 11:30 12/21/16 22:14 Oxycodone HCl (Roxicodone) 10 mg Q4H PRN PO PAIN SCALE 6 TO 10 12/21/16 11:30 12/29/16 02:55 Trazodone HCl 100 mg 100 mg HS PO 12/25/16 21:00 12/28/16 20:59 Cefepime HCl/ Sodium Chloride (Maxipime Inj/NS Inj) 100 ml @ 200 mls/hr Q8H IV 12/25/16 16:00 12/29/16 07:38 Hydromorphone HCl 1 mg 1 mg Q2HR PRN IV PUSH BREAKTHROUGH PAIN 12/26/16 13:00 12/29/16 07:41 Vancomycin HCl/ Sodium Chloride (Vancomycin Inj/ NS 500 ml Inj) 515 ml @ 257.5 mls/ hr Q12H IV 12/28/16 18:00 12/29/16 05:57 Other Results Laboratory Tests Test 12/29/16 05:38 White Blood Count 12.3 TH/MM3 Red Blood Count 3.56 MIL/MM3 Hemoglobin 10.2 GM/DL Hematocrit 32.0 % Mean Corpuscular Volume 89.9 FL Mean Corpuscular Hemoglobin 28.8 PG Mean Corpuscular Hemoglobin 32.0 % Concent Red Cell Distribution Width 13.4 % Platelet Count 272 TH/MM3 Mean Platelet Volume 9.4 FL Neutrophils (%) (Auto) 73.4 % Lymphocytes (%) (Auto) 18.5 % Monocytes (%) (Auto) 5.4 % Eosinophils (%) (Auto) 1.3 % Basophils (%) (Auto) 1.4 % Neutrophils # (Auto) 9.1 TH/MM3 Lymphocytes # (Auto) 2.3 TH/MM3 Monocytes # (Auto) 0.7 TH/MM3 Eosinophils # (Auto) 0.2 TH/MM3 Basophils # (Auto) 0.2 TH/MM3 CBC Comment DIFF FINAL Differential Comment Laboratory Tests Test 12/28/16 04:18 Creatinine 0.95 MG/DL Estimat Glomerular Filtration 84 ML/MIN Rate Microbiology Date/Time Procedure Status Source Growth 12/28/16 11:23 Gram Stain Received Wound Heel Pending 12/28/16 11:23 Wound Culture Received Wound Heel Pending 12/28/16 11:23 Acid Fast Stain Received Wound Heel Pending 12/28/16 11:23 Mycobacterial Culture Received Wound Heel Pending 12/28/16 11:23 Fungal Smear Received Wound Ankle Pending 12/28/16 11:23 Fungal Culture Received Wound Ankle Pending 12/28/16 11:23 Fungal Smear Received Wound Heel Pending 12/28/16 11:23 Fungal Culture Received Wound Heel Pending 12/28/16 11:23 Gram Stain Received Wound Ankle Pending 12/28/16 11:23 Wound Culture Received Wound Ankle Pending 12/28/16 11:23 Acid Fast Stain Received Wound Ankle Pending 12/28/16 11:23 Mycobacterial Culture Received Wound Ankle Pending 12/25 + bacillus Cx Exam-Podiatry Remarks Left LE- Medial ankle/hindfoot laceration approx 20 cm is loosely coapted with sutures intact serosanguinus drainage noted absent medial fat pad and skin with exposed calcaneus aprrox 6cm x5xm, foot is everted with loss PT tendon function, able to dorsiflex toes and ankle also able to plantar flexion, no redness or odor noted, toes have good CFT sensation is intact to majority of the the foot, calf is non tender non distended. Right LE- WNL Assessment & Plan A/P Left foot ankle hindfoot partial degloving with open fracture of calcaneus, medial ankle, ruptured posterior tibial tendon, medial ankle ligaments/deltoid. SP I D / Washout last on 12/28- Dr Love. Reviewed ID note- to be treated as true infection involving bone. Plan for repeat I and D washout this thursday/. Explained to the patient as long as there is bacteria; repairing the soft tissue / bone needs to wait to prevent deeper infection. Likely will need 4-6 weeks of IV ABX before reconstruction vs ankle fusion can take place. NPO and consent ordered. Continue pain management and IV ABX. Duane Burden DPM December 29, 2016 08:20
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
[2016-12-29] MEDS: SODIUM CHLOR 0.9% 1000 ML INJ 1,000 ML IV SCH ×2 (10:00→19:59)
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
[2016-12-29] MEDS: traZODone HCL 100 MG TAB PO SCH (19:57)
[2016-12-30] VITALS: BP 133/77; PULSE 88; RESP 16; TEMP 96.4; O2SAT 95
[2016-12-30] MEDS: HYDROmorphone HCL PF 1 MG/ML VIAL IV PUSH PRN ×5 (00:18→21:46)
[2016-12-30] MEDS: CEFEPIME INJ 2,000 MG in SODIUM CHLORIDE 0.9% INJ 100 ML IV SCH ×3 (00:18→16:00)
[2016-12-30 04:00] VITALS: BP 127/52; PULSE 82; RESP 17; TEMP 96.6; O2SAT 98
[2016-12-30] MEDS ORDERED: PHARMACY ORDERED LAB ONE (05:45)
[2016-12-30] MEDS: VANCOMYCIN 1,500 MG/NS 500 ML IV SCH ×2 (05:46)
[2016-12-30] MEDS: SODIUM CHLOR 0.9% 1000 ML INJ 1,000 ML IV SCH ×3 (06:00→22:51)
[2016-12-30 06:50] LABS: VANCOMYCIN TROUGH 12.7 MCG/ML (5.0-10.0)
[2016-12-30 08:39] VITALS: BP 128/65; PULSE 73; RESP 20; TEMP 97.2; O2SAT 95
[2016-12-30] MEDS: DOCUSATE SODIUM 50 MG/SENNA 8.6 MG TAB PO SCH ×2 (09:00→20:12)
[2016-12-30 12:00] VITALS: BP 143/76; PULSE 71; RESP 20; TEMP 96.1; O2SAT 96
[2016-12-30] MEDS ORDERED: HYDROmorphone HCL PF 2 MG/ML VIAL ONE (14:45)
[2016-12-30] MEDS ORDERED: ONDANSETRON HCL 4 MG/2 ML VIAL IV PUSH ONE (14:50)
[2016-12-30] MEDS ORDERED: PROPOFOL 200 MG/20 ML AMP IV ONE (14:50)
[2016-12-30] MEDS ORDERED: NEOMYCIN/POLYMYXIN 1 ML G.U. IRRIGANT IRRIGATION ONE (14:52)
[2016-12-30] MEDS ORDERED: fentaNYL CITRATE 250 MCG/5 ML AMP ONE ×2 (15:05→16:53)
[2016-12-30] MEDS ORDERED: ACETAMINOPHEN 1000 MG/100 ML VIAL IV ONE (15:05)
[2016-12-30] MEDS ORDERED: FAMOTIDINE 20 MG/2 ML VIAL ONE (15:16)
[2016-12-30] MEDS ORDERED: MIDAZOLAM HCL 2 MG/2 ML VIAL ONE ×2 (15:16→16:52)
[2016-12-30] MEDS ORDERED: DO NOT ADM ANY ANTICOAGULANT DRUGS PRN (15:43)
[2016-12-30] MEDS ORDERED: BUPIVACAINE HCL PF 0.25% 30 ML VIAL ONE (15:48)
--- NOTE | 2016-12-30 16:32 | HHI.PR ---
Immediate Post Op Note Procedure Date: December 30, 2016 Pre Op Diagnosis: left foot ankle open fracture complex laceration Post Op Diagnosis: same Surgeon: Duane Garcia Scouring Train Operator Chief(s): scrub Procedure: Left foot ankle incision drainage bone debridement, delayed wound closure of wound. Complications: None Specimen(s) removed: deep wound Cx x 2 ankle and calcaneus Estimated blood loss: less 50mL Anesthesia: General, Local Drains: None Patient to: PACU Patient Condition: Poor Implant/Devices: SEE IMPLANT LOG (if applicable) Date/Time of Procedure: SEE SURGICAL CARE RECORD Duane GarciaM December 30, 2016 16:31
[2016-12-30] MEDS ORDERED: MORPHINE SULFATE 4 MG/ML INJ ONE (16:53)
[2016-12-30] MEDS ORDERED: *morphine SULFATE 8 MG/ML PERIprocedure ONLY ONE ×3 (16:57→17:26)
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
[2016-12-30] MEDS: VANCOMYCIN INJ 2,000 MG in SODIUM CHLORID 0.9% 500 ML INJ 500 ML IV SCH (18:29)
[2016-12-30] MEDS: traZODone HCL 100 MG TAB PO SCH (20:11)
[2016-12-30 20:30] VITALS: BP 118/58; PULSE 78; RESP 18; TEMP 96.5; O2SAT 93
[2016-12-31] VITALS (7 sets, daily range): BP systolic 122–160; BP diastolic 57–75; PULSE 71–86; RESP 16–19; TEMP 96.3–97.9; O2SAT 93–97
[2016-12-31] MEDS: CEFEPIME INJ 2,000 MG in SODIUM CHLORIDE 0.9% INJ 100 ML IV SCH ×4 (00:15→23:17)
[2016-12-31] MEDS: HYDROmorphone HCL PF 1 MG/ML VIAL IV PUSH PRN ×7 (01:29→23:17)
[2016-12-31] MEDS: VANCOMYCIN INJ 2,000 MG in SODIUM CHLORID 0.9% 500 ML INJ 500 ML IV SCH (05:39)
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
[2016-12-31] MEDS: DOCUSATE SODIUM 50 MG/SENNA 8.6 MG TAB PO SCH (19:49)
[2016-12-31] MEDS: traZODone HCL 100 MG TAB PO SCH (19:50)
[2016-12-31] MEDS: SODIUM CHLOR 0.9% 1000 ML INJ 1,000 ML IV SCH (19:50)
[2017-01-01 00:10] VITALS: BP 139/70; PULSE 93; RESP 17; TEMP 98.2; O2SAT 95
[2017-01-01] MEDS: HYDROmorphone HCL PF 1 MG/ML VIAL IV PUSH PRN ×7 (02:41→22:55)
[2017-01-01] MEDS: VANCOMYCIN INJ 2,000 MG in SODIUM CHLORID 0.9% 500 ML INJ 500 ML IV SCH ×2 (05:48→18:19)
[2017-01-01 08:00] VITALS: BP 143/67; PULSE 80; RESP 18; TEMP 96.9; O2SAT 95
[2017-01-01] MEDS: SODIUM CHLOR 0.9% 1000 ML INJ 1,000 ML IV SCH ×2 (08:00→18:00)
[2017-01-01] MEDS: CEFEPIME INJ 2,000 MG in SODIUM CHLORIDE 0.9% INJ 100 ML IV SCH ×2 (08:44→15:57)
[2017-01-01] MEDS: DOCUSATE SODIUM 50 MG/SENNA 8.6 MG TAB PO SCH ×2 (09:00→22:25)
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
--- NOTE | 2017-01-01 10:32 | HHI.PYPN ---
Subjective Remarks Patient was seen today for psychiatric reevaluation, he was found calm, cooperative, a little bit irritable. Patient says that he has been experiencing confusion at times, paranoia against nurses and people around, episodes of thinking that he is in a different place environment. However right now patient is fully oriented 3, without any attention deficit, not delirium, no gross cognitive impairment. He says that his mood is "so-so", he says that he is not happy to be in the hospital for such a long time, but he understands that he needs to be here. He also says that he is having difficulty sleeping at night, with frequent awakenings. He denies suicidal or homicidal ideation, he denies visual and auditory hallucinations. No agitation , aggressive behavior has been reported by nurses. Review of Systems Constitutional: DENIES: Diaphoretic episodes, Fatigue, Fever, Weight gain, Weight loss, Chills, Dizziness, Change in appetite, Night Sweats Endocrine: DENIES: Heat/cold intolerance, Polydipsia, Polyuria, Polyphagia Eyes: DENIES: Blurred vision, Diplopia, Eye inflammation, Eye pain, Vision loss , Photosensitivity, Double Vision Ears, nose, mouth, throat: DENIES: Tinnitus, Hearing loss, Vertigo, Nasal discharge, Oral lesions, Throat pain, Hoarseness, Ear Pain, Running Nose, Epistaxis, Sinus Pain, Toothache, Odynophagia Respiratory: DENIES: Apneas, Cough, Snoring, Wheezing, Hemoptysis, Sputum production, Shortness of breath Cardiovascular: DENIES: Chest pain, Palpitations, Syncope, Dyspnea on Exertion , PND, Lower Extremity Edema, Orthopnea, Claudication Gastrointestinal: DENIES: Abdominal pain, Black stools, Bloody stools, Constipation, Diarrhea, Nausea, Vomiting, Difficulty Swallowing, Anorexia Genitourinary: DENIES: Sexual dysfunction, Urinary frequency, Urinary incontinence, Urgency, Hematuria, Dysuria, Nocturia, Penile Discharge, Testicular Pain, Testicular Swelling Musculoskeletal: DENIES: Joint pain, Muscle aches, Stiffness, Joint Swelling, Back pain, Neck pain Integumentary: DENIES: Abnormal pigmentation, Nail changes, Pruritus, Rash Hematologic/lymphatic: DENIES: Bruising, Lymphadenopathy Immunologic/allergic: DENIES: Eczema, Urticaria Neurologic: DENIES: Abnormal gait, Headache, Localized weakness, Paresthesias, Seizures, Speech Problems, Tremor, Poor Balance Psychiatric: COMPLAINS OF: Confusion, DENIES: Anxiety, Mood changes, Depression, Hallucinations, Agitation, Suicidal Ideation, Homicidal Ideation, Delusions Objective Alert: Yes Bath: Person, Place, Date, Situation Mood: Angry Affect: Restricted Memory Intact: Immediate, Recent, Remote Hallucinations: Other (no at this moment) Delusions: No Delusion Type: Other (not elicited) Suicidal: Ideation (he denies) Homicidal: Ideation (he denies) Insight/[facility] Labs Test 01/01/17 04:49 Creatinine 1.16 MG/DL Estimat Glomerular Filtration 67 ML/MIN Rate Date/Time Procedure Status Source Growth 12/30/16 15:57 Gram Stain - Final Resulted Wound Ankle 12/30/16 15:57 Wound Culture - Preliminary Resulted Wound Ankle NO GROWTH IN 48 HOURS. 12/30/16 15:57 Fungal Smear - Final Resulted Wound Ankle NO FUNGAL ELEMENTS SEEN. 12/30/16 15:57 Fungal Culture Resulted Wound Ankle Pending 12/30/16 15:57 Acid Fast Stain Received Wound Ankle Pending 12/30/16 15:57 Mycobacterial Culture Received Wound Ankle Pending 12/28/16 11:23 Acid Fast Stain - Final Resulted Wound Heel NO ACID FAST BACILLI SEEN 12/28/16 11:23 Mycobacterial Culture Resulted Wound Heel Pending Vitals/IOs Vital Signs Date Time Temp Pulse Resp B/P Pulse Ox O2 Delivery O2 Flow Rate FiO2 01/01/17 00:10 98.2 93 17 139/70 95 12/31/16 19:03 Room Air 12/31/16 11:38 21 12/30/16 17:30 2 Intake and Output 12/31/16 12/31/16 01/01/17 08:00 16:00 00:00 Intake Total 1621 ml 480 ml 726 ml Output Total 1500 ml 0 ml Balance 121 ml 480 ml 726 ml Assessment & Plan Problem List: (1) Adjustment disorder with disturbance of conduct Assessment & Plan: Patient describes moments of confusion, disorientation, paranoia, however at the moment of this evaluation patient is oriented 3, no attention deficit, no gross cognitive impairment, no psychosis is observed or reported. My impression is the patient has been waxing and waning, and delirious due to underlying medical conditions. He also reports insomnia. Will add Seroquel 50 mg at bedtime to help with insomnia and also with paranoia and confusion. We'll continue follow-up.. ICD Code: F43.24 Assessment & Plan Estimated LOS: days Justification for Cont. Inpt. Patient does not meet criteria for psychiatric admission. Atul Ramirez MD January 01, 2017 10:32
[2017-01-01 12:00] VITALS: BP 135/67; PULSE 86; RESP 18; TEMP 96.3; O2SAT 93
--- NOTE | 2017-01-01 14:19 | PD.POD ---
Subjective Pain scale used: 0-10 numeric scale Pain score: 7 Remarks Seen sitting in chair with wound vac intact. Past Med/Surg/Social History Social History Smoking Status: Former Smoker Objective Vital Signs Vital Signs Date Time Temp Pulse Resp B/P Pulse Ox O2 Delivery O2 Flow Rate FiO2 01/01/17 12:00 96.3 86 18 135/67 93 01/01/17 08:00 96.9 80 18 143/67 95 01/01/17 00:10 98.2 93 17 139/70 95 12/31/16 19:45 96.6 83 18 122/57 97 12/31/16 19:03 Room Air 12/31/16 17:00 97.9 86 16 160/65 93 Coded Allergies: Penicillin (Verified Allergy, Unknown, 12/18/16) Medications and IVs Administered Medications Medications (Trade) Dose Ordered Sig/Jazmyn Route PRN Reason Start Time Stop Time Status Last Admin Dose Admin Sodium Chloride 2 ml 2 ml UNSCH PRN IVF FLUSH AFTER USING IV ACCESS 12/18/16 11:00 12/19/16 14:07 Sodium Chloride (NS 1000 ml Inj) 1,000 ml @ 100 mls/hr Q10H IV 12/18/16 14:00 12/28/16 07:19 Senna/Docusate Sodium (Gilda-Colace) 2 tab BID PO 12/21/16 11:00 12/29/16 19:58 Oxycodone HCl (Roxicodone) 5 mg Q4H PRN PO PAIN SCALE 1 TO 5 12/21/16 11:30 12/21/16 22:14 Oxycodone HCl (Roxicodone) 10 mg Q4H PRN PO PAIN SCALE 6 TO 10 12/21/16 11:30 01/01/17 10:17 Trazodone HCl 100 mg 100 mg HS PO 12/25/16 21:00 12/31/16 19:50 Cefepime HCl/ Sodium Chloride (Maxipime Inj/NS Inj) 100 ml @ 200 mls/hr Q8H IV 12/25/16 16:00 01/01/17 08:44 Hydromorphone HCl 1 mg 1 mg Q2HR PRN IV PUSH BREAKTHROUGH PAIN 12/26/16 13:00 01/01/17 11:57 Vancomycin HCl/ Sodium Chloride (Vancomycin Inj/ NS 500 ml Inj) 520 ml @ 257.5 mls/ hr Q12H IV 12/30/16 18:00 01/01/17 05:48 Other Results Laboratory Tests Test 01/01/17 04:49 Creatinine 1.16 MG/DL Estimat Glomerular Filtration 67 ML/MIN Rate Microbiology Date/Time Procedure Status Source Growth 12/30/16 15:56 Gram Stain - Final Resulted Wound Heel 12/30/16 15:56 Wound Culture - Preliminary Resulted Wound Heel NO GROWTH IN 48 HOURS. 12/30/16 15:56 Acid Fast Stain - Final Resulted Wound Heel NO ACID FAST BACILLI SEEN 12/30/16 15:56 Mycobacterial Culture Resulted Wound Heel Pending 12/30/16 15:56 Fungal Smear - Final Resulted Wound Heel NO FUNGAL ELEMENTS SEEN. 12/30/16 15:56 Fungal Culture Resulted Wound Heel Pending 12/30/16 15:57 Gram Stain - Final Resulted Wound Ankle 12/30/16 15:57 Wound Culture - Preliminary Resulted Wound Ankle NO GROWTH IN 48 HOURS. 12/30/16 15:57 Acid Fast Stain - Final Resulted Wound Ankle NO ACID FAST BACILLI SEEN 12/30/16 15:57 Mycobacterial Culture Resulted Wound Ankle Pending 12/30/16 15:57 Fungal Smear - Final Resulted Wound Ankle NO FUNGAL ELEMENTS SEEN. 12/30/16 15:57 Fungal Culture Resulted Wound Ankle Pending Physical Exam Remarks Left foot and ankle- splint intact wound vac intact good cft to digits sensation intact calf non tender non distended. Assessment & Plan A/P Left foot ankle hindfoot partial degloving with open fracture of calcaneus, medial ankle, ruptured posterior tibial tendon, medial ankle ligaments/deltoid. SP I D / Wound closure, wound vac application- 12-30. Reviewed ID note- to be treated as true infection involving bone. Plan to change wound vac tomorrow, no reconstruction of foot/ankle surgery planned at this point until cleared from ID Continue pain management and IV ABX. Duane Burden DPM January 01, 2017 14:18
--- NOTE | 2017-01-01 14:28 | MP ---
cc: NAVIN SHEEHAN DPM DATE OF SURGERY 12/30/2016 PREOPERATIVE DIAGNOSIS Left foot ankle open fracture dislocation with complex laceration multiple tendon ruptures noted. POSTOPERATIVE DIAGNOSIS Left foot ankle open fracture dislocation with complex laceration multiple tendon ruptures noted. PROCEDURES PERFORMED Left foot and ankle incision and drainage, bone debridement with delayed primary closure of wound, left foot application of wound Vac. COMPLICATIONS None SPECIMEN Deep wound culture, one of the ankle joint, one at the level of the calcaneus. ESTIMATED BLOOD LOSS Approximately 50 mL ANESTHESIA General with local JUSTIFICATION FOR THE PROCEDURE This is a 51-year-old male who sustained a severe complex partial degloving open fracture of his left foot and ankle. This is an attempt to debulk any infected or necrotic tissue and attempt a closure of the wound and wound Vac application. The patient now has positive cultures which indicate the need for six weeks of IV antibiotics before any advanced reconstruction can take place either of bone or of soft tissue. The patient understood he will likely need an ankle fusion due to the lack of having partial medial malleolus and having only part of the calcaneus. He understands and wishes for all limb salvage efforts PROCEDURE IN DETAIL Under mild sedation, the patient was brought into the operating room, placed on the operating table in the supine position and following the induction of general anesthesia, local anesthesia was obtained about the patient's anterior ankle utilizing standard block fashion. The patient's left foot and ankle was then scrubbed, prepped and draped in the usual aseptic fashion. The foot was elevated and examined. There is an approximately 20 cm proximal medial ankle laceration that went all the way to the back of the posterior Achilles and just below that by approximately 60 cm is a degloving injury of the medial calcaneus and the medial foot extending all the way to the talonavicular joint. Retention sutures were then removed at this time. All nonviable tissue was debrided utilizing rongeur, curette and a 15 blade to viable bleeding tissue. There was no harm at the level of the anastomosis repair site of the posterior tibial artery. The posterior tibial tendon was fully retracted well beyond the ankle joint. The medial deltoid was absent as there was no anterior medial malleolus. The talar dome was examined. It was noted to be free from dirt and debris. Utilizing a curette and rongeur, all bony exposed surfaces including the calcaneus, the medial malleolus, navicular and the talus were all debrided. There is no obvious signs of foreign body or clinical signs of infection. A deep culture was taken at the level of the ankle joint and at the level of the debrided medial wall of the calcaneus. The wound was then flushed with copious amounts of normal saline. Retention sutures were then used to close the proximal medial ankle wound, as well as the distal medial foot wound. There was noted to be an approximately 8 cm x 8 cm deficit of the medial heel with exposed calcaneus and Achilles tendon. At this time, a wound Vac was then placed with adequate seal and suction to 100 mmHg mild continuous suction. A bulky bandage was then placed. The patient was then positioned within a posterior splint. The patient is transferred from OR to PACU with all vital signs stable. At this point, we will continue the wound Vac for [id number] days and we will continue to monitor the wound. The patient may be in a possible direction for discharge if the wound continues to show no signs of infection possibly for the next 7-10 days. We will continue to follow along and preserve this patient's limb as long as it remains viable. JESE Schaeffer/VAHID /8:29 AM /2:19 PM
[2017-01-01 16:00] VITALS: BP 134/60; PULSE 84; RESP 18; TEMP 97.3; O2SAT 94
[2017-01-01 20:10] VITALS: BP 121/69; PULSE 82; RESP 18; TEMP 98.3; O2SAT 96
[2017-01-01] MEDS: traZODone HCL 100 MG TAB PO SCH (22:26)
[2017-01-01] MEDS: QUEtiapine FUMARATE 25 MG TAB PO SCH (22:26)
[2017-01-02 00:05] VITALS: BP 113/55; PULSE 84; RESP 18; TEMP 96.8; O2SAT 95
[2017-01-02] MEDS: CEFEPIME INJ 2,000 MG in SODIUM CHLORIDE 0.9% INJ 100 ML IV SCH ×3 (01:36→17:46)
[2017-01-02] MEDS: HYDROmorphone HCL PF 1 MG/ML VIAL IV PUSH PRN ×6 (01:58→21:18)
[2017-01-02] MEDS: SODIUM CHLOR 0.9% 1000 ML INJ 1,000 ML IV SCH ×2 (04:00→14:00)
[2017-01-02 04:10] VITALS: BP 123/54; PULSE 86; RESP 18; TEMP 97.5; O2SAT 95
[2017-01-02] MEDS ORDERED: PHARMACY ORDERED LAB ONE (05:45)
[2017-01-02] MEDS: VANCOMYCIN INJ 2,000 MG in SODIUM CHLORID 0.9% 500 ML INJ 500 ML IV SCH (05:47)
[2017-01-02 07:00] LABS: VANCOMYCIN TROUGH 12.3 MCG/ML (5.0-10.0)
[2017-01-02 08:00] VITALS: BP 137/65; PULSE 77; RESP 18; TEMP 96.9; O2SAT 96
[2017-01-02] MEDS: DOCUSATE SODIUM 50 MG/SENNA 8.6 MG TAB PO SCH ×2 (08:38→21:59)
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
[2017-01-02 12:00] VITALS: BP 130/58; PULSE 74; RESP 18; TEMP 97; O2SAT 96
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
[2017-01-02 16:00] VITALS: BP 110/58; PULSE 75; RESP 18; TEMP 96.6; O2SAT 92
[2017-01-02] MEDS: VANCOMYCIN INJ 2,500 MG in SODIUM CHLORID 0.9% 500 ML INJ 500 ML IV SCH (17:39)
[2017-01-02 20:00] VITALS: BP 104/50; PULSE 83; RESP 18; TEMP 97.4; O2SAT 94
[2017-01-02] MEDS: traZODone HCL 100 MG TAB PO SCH (21:59)
[2017-01-02] MEDS: QUEtiapine FUMARATE 25 MG TAB PO SCH (22:00)
[2017-01-03] MEDS: CEFEPIME INJ 2,000 MG in SODIUM CHLORIDE 0.9% INJ 100 ML IV SCH ×3 (00:08→16:31)
[2017-01-03] MEDS: HYDROmorphone HCL PF 1 MG/ML VIAL IV PUSH PRN ×7 (00:12→20:51)
[2017-01-03] MEDS: SODIUM CHLOR 0.9% 1000 ML INJ 1,000 ML IV SCH ×3 (00:13→20:00)
[2017-01-03 00:20] VITALS: BP 126/61; PULSE 88; RESP 17; TEMP 96.9; O2SAT 96
[2017-01-03 04:15] VITALS: BP 134/63; PULSE 84; RESP 17; TEMP 97.4; O2SAT 95
[2017-01-03] MEDS: VANCOMYCIN INJ 2,500 MG in SODIUM CHLORID 0.9% 500 ML INJ 500 ML IV SCH ×2 (06:29→17:26)
[2017-01-03 08:00] VITALS: BP 104/65; PULSE 86; RESP 20; TEMP 97; O2SAT 96
[2017-01-03] MEDS: DOCUSATE SODIUM 50 MG/SENNA 8.6 MG TAB PO SCH ×2 (09:10→20:48)
[2017-01-03 12:00] VITALS: BP 121/68; PULSE 90; RESP 19; TEMP 97.6; O2SAT 96
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
[2017-01-03 16:00] VITALS: BP 127/66; PULSE 81; RESP 20; TEMP 96.1; O2SAT 96
[2017-01-03 20:10] VITALS: BP 137/74; PULSE 86; RESP 16; TEMP 97.3; O2SAT 96
[2017-01-03] MEDS: traZODone HCL 100 MG TAB PO SCH (20:48)
[2017-01-03] MEDS: QUEtiapine FUMARATE 25 MG TAB PO SCH (20:48)
[2017-01-04] VITALS: BP 108/58; PULSE 84; RESP 17; TEMP 98.6; O2SAT 97
[2017-01-04] MEDS: CEFEPIME INJ 2,000 MG in SODIUM CHLORIDE 0.9% INJ 100 ML IV SCH ×4 (00:39→23:24)
[2017-01-04] MEDS: HYDROmorphone HCL PF 1 MG/ML VIAL IV PUSH PRN ×8 (00:39→23:24)
[2017-01-04] MEDS ORDERED: PHARMACY ORDERED LAB ONE (05:45)
[2017-01-04] MEDS: VANCOMYCIN INJ 2,500 MG in SODIUM CHLORID 0.9% 500 ML INJ 500 ML IV SCH ×2 (05:57→17:32)
[2017-01-04] MEDS: SODIUM CHLOR 0.9% 1000 ML INJ 1,000 ML IV SCH ×3 (06:00→23:46)
[2017-01-04 06:27] LABS: BICARBONATE 29.9 MEQ/L (21.0-32.0); POTASSIUM 4.1 MEQ/L (3.5-5.1); VANCOMYCIN TROUGH 14.4 MCG/ML (5.0-10.0)
[2017-01-04 07:14] LABS: AUTOMATED NEUTROPHIL # 5.6 TH/MM3 (1.8-7.7); BASOPHIL # 0.2 TH/MM3 (0-0.2); BASOPHIL % 1.9 % (0.0-2.0); EOSINOPHIL # 0.6 TH/MM3 (0-0.4); EOSINOPHIL % 5.5 % (0.0-4.0); HEMATOCRIT 34.5 % (39.0-51.0); HEMO FLAGS DIFF FINAL; LYMPH % 30.4 % (9.0-44.0); LYMPHOCYTE # 3.1 TH/MM3 (1.0-4.8); MEAN CELL VOLUME 89.8 FL (80.0-100.0); MEAN CORPUSCULAR HEMOGLOBIN 28.8 PG (27.0-34.0); MEAN CORPUSCULAR HGB CONC 32.1 % (32.0-36.0); MONO % 7.2 % (0.0-8.0); PLATELET COUNT 255 TH/MM3 (150-450); RED BLOOD COUNT 3.84 MIL/MM3 (4.50-5.90); RED CELL DISTRIBUTION WIDTH 13.8 % (11.6-17.2); WHITE BLOOD COUNT 10.2 TH/MM3 (4.0-11.0)
[2017-01-04 08:00] VITALS: BP 120/84; PULSE 110; RESP 18; TEMP 98.1; O2SAT 93
[2017-01-04 12:00] VITALS: BP 98/62; PULSE 88; RESP 18; TEMP 97.1; O2SAT 95
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
--- NOTE | 2017-01-04 13:44 | PD.POD ---
Subjective Pain scale used: 0-10 numeric scale Pain score: 7 Remarks In bed with wound vac intact, still needing pain meds. Past Med/Surg/Social History Social History Smoking Status: Former Smoker Objective Vital Signs Vital Signs Date Time Temp Pulse Resp B/P Pulse Ox O2 Delivery O2 Flow Rate FiO2 01/04/17 08:00 98.1 110 18 120/84 93 01/04/17 00:00 98.6 84 17 108/58 97 01/03/17 20:10 97.3 86 16 137/74 96 01/03/17 18:26 18 01/03/17 17:00 18 01/03/17 16:00 96.1 81 20 127/66 96 Coded Allergies: Penicillin (Verified Allergy, Unknown, 12/18/16) Medications and IVs Administered Medications Medications (Trade) Dose Ordered Sig/Jazmyn Route PRN Reason Start Time Stop Time Status Last Admin Dose Admin Sodium Chloride 2 ml 2 ml UNSCH PRN IVF FLUSH AFTER USING IV ACCESS 12/18/16 11:00 12/19/16 14:07 Sodium Chloride (NS 1000 ml Inj) 1,000 ml @ 100 mls/hr Q10H IV 12/18/16 14:00 01/03/17 00:13 Senna/Docusate Sodium (Gilda-Colace) 2 tab BID PO 12/21/16 11:00 01/03/17 09:10 Oxycodone HCl (Roxicodone) 5 mg Q4H PRN PO PAIN SCALE 1 TO 5 12/21/16 11:30 12/21/16 22:14 Oxycodone HCl (Roxicodone) 10 mg Q4H PRN PO PAIN SCALE 6 TO 10 12/21/16 11:30 01/04/17 13:35 Trazodone HCl 100 mg 100 mg HS PO 12/25/16 21:00 01/03/17 20:48 Cefepime HCl/ Sodium Chloride (Maxipime Inj/NS Inj) 100 ml @ 200 mls/hr Q8H IV 12/25/16 16:00 01/04/17 08:33 Hydromorphone HCl (Dilaudid Pf Inj) 1 mg Q2HR PRN IV PUSH BREAKTHROUGH PAIN 12/26/16 13:00 01/04/17 13:36 Quetiapine Fumarate 50 mg 50 mg HS PO 01/01/17 21:00 01/03/17 20:48 Vancomycin HCl/ Sodium Chloride (Vancomycin Inj/ NS 500 ml Inj) 525 ml @ 257.5 mls/ hr Q12H IV 01/02/17 18:00 01/04/17 05:57 Other Results Laboratory Tests Test 01/04/17 06:27 White Blood Count 10.2 TH/MM3 Red Blood Count 3.84 MIL/MM3 Hemoglobin 11.1 GM/DL Hematocrit 34.5 % Mean Corpuscular Volume 89.8 FL Mean Corpuscular Hemoglobin 28.8 PG Mean Corpuscular Hemoglobin 32.1 % Concent Red Cell Distribution Width 13.8 % Platelet Count 255 TH/MM3 Mean Platelet Volume 9.9 FL Neutrophils (%) (Auto) 55.0 % Lymphocytes (%) (Auto) 30.4 % Monocytes (%) (Auto) 7.2 % Eosinophils (%) (Auto) 5.5 % Basophils (%) (Auto) 1.9 % Neutrophils # (Auto) 5.6 TH/MM3 Lymphocytes # (Auto) 3.1 TH/MM3 Monocytes # (Auto) 0.7 TH/MM3 Eosinophils # (Auto) 0.6 TH/MM3 Basophils # (Auto) 0.2 TH/MM3 CBC Comment DIFF FINAL Differential Comment Laboratory Tests Test 01/03/17 01/04/17 06:22 05:45 Creatinine 1.00 MG/DL 1.00 MG/DL Estimat Glomerular Filtration 79 ML/MIN 79 ML/MIN Rate Sodium Level 141 MEQ/L Potassium Level 4.1 MEQ/L Chloride Level 104 MEQ/L Carbon Dioxide Level 29.9 MEQ/L Anion Gap 7 MEQ/L Blood Urea Nitrogen 14 MG/DL Random Glucose 104 MG/DL Calcium Level 8.6 MG/DL Physical Exam Remarks Left LE- wound vac intact- serosanguineous drainage noted, splint intact able to move toes Assessment & Plan A/P Left foot ankle hindfoot partial degloving with open fracture of calcaneus, medial ankle, ruptured posterior tibial tendon, medial ankle ligaments/deltoid. SP I D / Wound closure, wound vac application- 9- Wdcx are neg from last surgery however 5-2 and -5-4 Cs are + for Acetobacter and bacillus Foot ankle remains viable with large soft tissue void. Continue IV ABX, schedule wound vac change for 3pm Terrancel[place]to Sprague. Reviewed with Medicine, DC is possible however the woundvac changes are so painful, I do not see him tolerating out side or homecare woundcare which is critical. Duane Burden DPM January 04, 2017 13:44
[2017-01-04 16:00] VITALS: BP 146/70; PULSE 86; RESP 18; TEMP 98.8; O2SAT 94
[2017-01-04 20:15] VITALS: BP 120/78; PULSE 89; RESP 17; TEMP 97.1; O2SAT 96
[2017-01-04] MEDS: DOCUSATE SODIUM 50 MG/SENNA 8.6 MG TAB PO SCH (21:00)
[2017-01-04] MEDS: traZODone HCL 100 MG TAB PO SCH (21:31)
[2017-01-04] MEDS: QUEtiapine FUMARATE 25 MG TAB PO SCH (21:32)
[2017-01-05] VITALS (7 sets, daily range): BP systolic 114–132; BP diastolic 54–68; PULSE 67–88; RESP 16–18; TEMP 95.9–98.4; O2SAT 93–97
[2017-01-05] MEDS: HYDROmorphone HCL PF 1 MG/ML VIAL IV PUSH PRN ×6 (02:30→21:04)
[2017-01-05] MEDS: VANCOMYCIN INJ 2,500 MG in SODIUM CHLORID 0.9% 500 ML INJ 500 ML IV SCH ×3 (05:29→18:00)
[2017-01-05] MEDS: DOCUSATE SODIUM 50 MG/SENNA 8.6 MG TAB PO SCH ×2 (09:00→20:11)
[2017-01-05] MEDS: CEFEPIME INJ 2,000 MG in SODIUM CHLORIDE 0.9% INJ 100 ML IV SCH ×2 (10:16→16:00)
[2017-01-05] MEDS ORDERED: ONDANSETRON HCL 4 MG/2 ML VIAL IV PUSH ONE (12:00)
[2017-01-05] MEDS: SODIUM CHLOR 0.9% 1000 ML INJ 1,000 ML IV SCH ×2 (12:00→21:09)
[2017-01-05] MEDS ORDERED: PROPOFOL 200 MG/20 ML AMP IV ONE (12:00)
[2017-01-05] MEDS ORDERED: BUPIVACAINE/EPINEPHRINE 0.25% 50 ML VIAL ONE (13:20)
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
[2017-01-05] MEDS ORDERED: FAMOTIDINE 20 MG/2 ML VIAL ONE (14:52)
[2017-01-05] MEDS ORDERED: MIDAZOLAM HCL 2 MG/2 ML VIAL ONE (14:53)
[2017-01-05] MEDS ORDERED: DEXAMETHASONE SOD PHOS 4 MG/ML VIAL ONE (14:53)
[2017-01-05] MEDS ORDERED: ACETAMINOPHEN 1000 MG/100 ML VIAL IV ONE (15:02)
[2017-01-05] MEDS ORDERED: VANCOMYCIN HCL 1000 MG VIAL ONE (16:09)
[2017-01-05] MEDS ORDERED: NEOMYCIN/POLYMYXIN 1 ML G.U. IRRIGANT TOPICAL ONE (16:20)
[2017-01-05] MEDS ORDERED: DO NOT ADM ANY ANTICOAGULANT DRUGS PRN (17:30)
[2017-01-05] MEDS: traZODone HCL 100 MG TAB PO SCH (20:09)
[2017-01-05] MEDS: QUEtiapine FUMARATE 25 MG TAB PO SCH (20:09)
[2017-01-06] VITALS (8 sets, daily range): BP systolic 111–122; BP diastolic 47–78; PULSE 80–120; RESP 17–18; TEMP 96–98; O2SAT 92–96
[2017-01-06] MEDS: HYDROmorphone HCL PF 1 MG/ML VIAL IV PUSH PRN ×7 (00:07→19:22)
[2017-01-06] MEDS: CEFEPIME INJ 2,000 MG in SODIUM CHLORIDE 0.9% INJ 100 ML IV SCH ×4 (00:07→22:42)
[2017-01-06] MEDS: TEMAZEPAM 15 MG CAP PO PRN (01:16)
[2017-01-06] MEDS: VANCOMYCIN INJ 2,500 MG in SODIUM CHLORID 0.9% 500 ML INJ 500 ML IV SCH ×2 (05:14→18:25)
[2017-01-06] MEDS: DOCUSATE SODIUM 50 MG/SENNA 8.6 MG TAB PO SCH ×2 (08:33→22:42)
[2017-01-06] MEDS: SODIUM CHLOR 0.9% 1000 ML INJ 1,000 ML IV SCH ×3 (08:33→22:43)
--- NOTE | 2017-01-06 11:43 | MP ---
cc: IDANIA SPRAGUE DATE OF SURGERY 01/05/[address] Idania Sprague [employer] None PREOPERATIVE DIAGNOSIS Left foot stage III traumatic ulceration POSTOPERATIVE DIAGNOSES Left foot stage III traumatic ulceration PROCEDURE 1. Left foot wound debridement 2. Left foot wound Vac application PATHOLOGY SENT None ANESTHESIA General HEMOSTASIS Anatomical dissection INJECTABLES None MATERIALS USED KCI wound Vac ESTIMATED BLOOD LOSS Less than 20 mL COMPLICATIONS None INDICATIONS Mr. Helms is a 51-year-old male patient with a traumatic ulceration to the left heel. He has had multiple incisions and drainages. He is fully sensate and unable to tolerate a wound Vac change on the floor at this time. The decision was made by my partner, Dr. Burden, who knows the patient very well, to have him return to the operating room for a repeat debridement and change the wound Vac at that time. The consent was signed. The procedure was explained. No guarantees were given. PROCEDURE Under mild anesthesia, the patient was brought into the operating room and placed on the operating table in the supine position. Following IV sedation, a pneumatic calf tourniquet was applied to the left calf. The leg was then scrubbed, prepped and draped in the usual aseptic manner. Attention was directed to the medial aspect of the left heel where a medial heel wound extending proximally measuring 11 cm x 4 cm x 2 cm was noted. Mostly granular tissue with some expose Achilles tendon. Just anterior medial to the Achilles tendon, a very small area that probed to bone, but no visualized bone exposed. No signs of acute infection. The area was sharply debrided with #15 scalpel to remove any fibrotic tissue. The area was then cleansed using cysto tubing and sterile 3000 mL of saline. The area was then dried copiously. Adaptic was applied over the Achilles tendon and the KCI black wound Vac was applied to the wound site with care being taken to avoid placing the sponge on any of the healthy tissue or covering the sutures that are present. The Vac was then set to 125 mmHg at medium continuous pressure and the seal was noted to be adequate and then a well-padded posterior splint was applied. The patient tolerated the procedure and anesthesia well. His capillary fill time remained stable throughout the entire procedure. He will recover in the PACU for a period of time before being discharged back to his hospital room with written and oral postoperative instructions. Idania VAIL/DJL /5:03 PM /11:36 AM
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
[2017-01-06] MEDS: QUEtiapine FUMARATE 25 MG TAB PO SCH (22:41)
[2017-01-06] MEDS: traZODone HCL 100 MG TAB PO SCH (22:42)
[2017-01-07] MEDS: QUEtiapine FUMARATE 25 MG TAB PO SCH (01:00)
[2017-01-07] MEDS: traZODone HCL 100 MG TAB PO SCH (01:00)
[2017-01-07] MEDS: HYDROmorphone HCL PF 1 MG/ML VIAL IV PUSH PRN ×7 (01:27→22:03)
[2017-01-07 04:05] VITALS: BP 123/83; PULSE 81; RESP 18; TEMP 97.7; O2SAT 97
[2017-01-07] MEDS: VANCOMYCIN INJ 2,500 MG in SODIUM CHLORID 0.9% 500 ML INJ 500 ML IV SCH (07:20)
[2017-01-07 08:00] VITALS: BP 119/86; PULSE 76; RESP 18; TEMP 96.7; O2SAT 95
[2017-01-07] MEDS: CEFEPIME INJ 2,000 MG in SODIUM CHLORIDE 0.9% INJ 100 ML IV SCH ×3 (08:59→23:29)
[2017-01-07] MEDS: DOCUSATE SODIUM 50 MG/SENNA 8.6 MG TAB PO SCH ×2 (09:00→21:00)
[2017-01-07] MEDS: SODIUM CHLORIDE 0.9% FLUSH 10 ML FLUSH IVF PRN ×2 (10:44→13:14)
[2017-01-07 12:00] VITALS: BP 115/52; PULSE 99; RESP 18; TEMP 97.3; O2SAT 94
[2017-01-07] MEDS: SODIUM CHLOR 0.9% 1000 ML INJ 1,000 ML IV SCH ×2 (13:14→23:30)
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
[2017-01-07 16:00] VITALS: BP 109/54; PULSE 66; RESP 18; TEMP 97.2; O2SAT 95
[2017-01-07] MEDS ORDERED: HYDROmorphone HCL PF 2 MG/ML VIAL SQ ONE (17:00)
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
[2017-01-07 20:00] VITALS: BP 99/50; PULSE 80; RESP 16; TEMP 98.1; O2SAT 96
[2017-01-07 21:32] VITALS: O2SAT 95
[2017-01-08] VITALS (7 sets, daily range): BP systolic 116–149; BP diastolic 56–69; PULSE 70–103; RESP 16–18; TEMP 96.1–98.3; O2SAT 95–98
[2017-01-08] MEDS: VANCOMYCIN INJ 2,500 MG in SODIUM CHLORID 0.9% 500 ML INJ 500 ML IV SCH ×2 (01:34→12:05)
[2017-01-08] MEDS: HYDROmorphone HCL PF 1 MG/ML VIAL IV PUSH PRN ×4 (04:13→17:44)
[2017-01-08] MEDS: SODIUM CHLOR 0.9% 1000 ML INJ 1,000 ML IV SCH ×2 (08:55→20:00)
[2017-01-08] MEDS: DOCUSATE SODIUM 50 MG/SENNA 8.6 MG TAB PO SCH ×3 (08:57→20:14)
[2017-01-08] MEDS: CEFEPIME INJ 2,000 MG in SODIUM CHLORIDE 0.9% INJ 100 ML IV SCH ×2 (08:57→16:10)
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
[2017-01-08] MEDS: traZODone HCL 100 MG TAB PO SCH (20:13)
[2017-01-08] MEDS: QUEtiapine FUMARATE 25 MG TAB PO SCH (20:13)
[2017-01-08] MEDS: HYDROmorphone HCL PF 2 MG/ML VIAL IV PUSH PRN ×2 (20:14→22:49)
[2017-01-09] MEDS: CEFEPIME INJ 2,000 MG in SODIUM CHLORIDE 0.9% INJ 100 ML IV SCH ×4 (01:34→23:49)
[2017-01-09] MEDS: VANCOMYCIN INJ 2,500 MG in SODIUM CHLORID 0.9% 500 ML INJ 500 ML IV SCH ×3 (01:34→23:49)
[2017-01-09] MEDS: HYDROmorphone HCL PF 2 MG/ML VIAL IV PUSH PRN ×2 (04:02→12:44)
[2017-01-09] MEDS: SODIUM CHLOR 0.9% 1000 ML INJ 1,000 ML IV SCH ×2 (06:20→16:00)
[2017-01-09 07:56] VITALS: BP 138/79; PULSE 80; RESP 20; TEMP 97.9; O2SAT 96
[2017-01-09] MEDS: HYDROmorphone HCL PF 1 MG/ML VIAL IV PUSH PRN ×5 (08:29→21:35)
[2017-01-09] MEDS: DOCUSATE SODIUM 50 MG/SENNA 8.6 MG TAB PO SCH ×2 (09:00→21:00)
[2017-01-09 12:20] VITALS: BP 132/70; PULSE 87; RESP 18; TEMP 98.3; O2SAT 98
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
[2017-01-09 16:06] VITALS: BP 141/73; PULSE 82; RESP 18; TEMP 98.3; O2SAT 97
[2017-01-09 19:00] VITALS: BP 145/65; PULSE 88; RESP 18; TEMP 96.7; O2SAT 95
[2017-01-09] MEDS: traZODone HCL 100 MG TAB PO SCH (21:35)
[2017-01-09] MEDS: QUEtiapine FUMARATE 25 MG TAB PO SCH (21:35)
[2017-01-09 23:40] VITALS: BP 134/82; PULSE 88; RESP 17; TEMP 96.8; O2SAT 97
[2017-01-10] MEDS: HYDROmorphone HCL PF 1 MG/ML VIAL IV PUSH PRN ×8 (00:19→23:26)
[2017-01-10] MEDS: SODIUM CHLOR 0.9% 1000 ML INJ 1,000 ML IV SCH ×3 (02:00→22:00)
[2017-01-10 08:00] VITALS: BP 102/59; PULSE 88; RESP 18; TEMP 98.6; O2SAT 95
[2017-01-10] MEDS: DOCUSATE SODIUM 50 MG/SENNA 8.6 MG TAB PO SCH ×2 (09:00→20:41)
[2017-01-10] MEDS: CEFEPIME INJ 2,000 MG in SODIUM CHLORIDE 0.9% INJ 100 ML IV SCH ×3 (10:23→22:55)
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
[2017-01-10 12:00] VITALS: BP 115/55; PULSE 82; RESP 18; TEMP 96.6; O2SAT 97
[2017-01-10] MEDS: VANCOMYCIN INJ 2,500 MG in SODIUM CHLORID 0.9% 500 ML INJ 500 ML IV SCH (12:05)
[2017-01-10 16:00] VITALS: BP 123/73; PULSE 80; RESP 18; TEMP 96.1; O2SAT 96
[2017-01-10 20:00] VITALS: BP 124/60; PULSE 75; RESP 18; TEMP 97.9; O2SAT 98
[2017-01-10] MEDS: QUEtiapine FUMARATE 25 MG TAB PO SCH (20:34)
[2017-01-10] MEDS: traZODone HCL 100 MG TAB PO SCH (20:40)
[2017-01-10] MEDS ORDERED: PHARMACY ORDERED LAB ONE (23:45)
[2017-01-11] VITALS: BP 108/67; PULSE 78; RESP 20; TEMP 98.5; O2SAT 93
[2017-01-11] MEDS: VANCOMYCIN INJ 2,500 MG in SODIUM CHLORID 0.9% 500 ML INJ 500 ML IV SCH (00:13)
[2017-01-11] MEDS: HYDROmorphone HCL PF 1 MG/ML VIAL IV PUSH PRN ×7 (03:02→21:41)
[2017-01-11 04:00] VITALS: BP 105/53; PULSE 71; RESP 20; TEMP 97.4; O2SAT 95
[2017-01-11 08:00] VITALS: BP 144/69; PULSE 78; RESP 18; TEMP 98.2; O2SAT 95
[2017-01-11] MEDS: SODIUM CHLOR 0.9% 1000 ML INJ 1,000 ML IV SCH ×2 (08:40→18:56)
[2017-01-11] MEDS: CEFEPIME INJ 2,000 MG in SODIUM CHLORIDE 0.9% INJ 100 ML IV SCH ×2 (08:40→15:04)
[2017-01-11] MEDS: DOCUSATE SODIUM 50 MG/SENNA 8.6 MG TAB PO SCH ×2 (08:41→21:00)
[2017-01-11] MEDS: SODIUM CHLORIDE 0.9% FLUSH 10 ML FLUSH IVF PRN ×4 (09:22→18:55)
[2017-01-11] MEDS: HYDROmorphone HCL PF 2 MG/ML VIAL IV PUSH PRN (09:22)
[2017-01-11 12:00] VITALS: BP 113/65; PULSE 85; RESP 18; TEMP 96.7; O2SAT 95
[2017-01-11] MEDS: VANCOMYCIN INJ 1,750 MG in SODIUM CHLORID 0.9% 500 ML INJ 500 ML IV SCH ×2 (12:15→20:09)
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
[2017-01-11 16:00] VITALS: BP 112/60; PULSE 95; RESP 18; TEMP 96; O2SAT 92
[2017-01-11 20:00] VITALS: BP 113/78; PULSE 82; RESP 22; TEMP 97.9; O2SAT 95
[2017-01-11] MEDS: traZODone HCL 100 MG TAB PO SCH (21:42)
[2017-01-11] MEDS: QUEtiapine FUMARATE 25 MG TAB PO SCH (21:42)
[2017-01-12] VITALS: BP 105/60; PULSE 76; RESP 24; TEMP 97.9; O2SAT 95
[2017-01-12] MEDS: CEFEPIME INJ 2,000 MG in SODIUM CHLORIDE 0.9% INJ 100 ML IV SCH ×3 (00:03→23:14)
[2017-01-12] MEDS: HYDROmorphone HCL PF 1 MG/ML VIAL IV PUSH PRN ×7 (00:59→22:18)
[2017-01-12] MEDS ORDERED: LACTATED RINGER'S 1000 ML IV PRN (01:15)
[2017-01-12] MEDS ORDERED: INSULIN HUMAN REGULAR 1,000 UNITS/10 ML VIAL SQ PRN (01:15)
[2017-01-12] MEDS ORDERED: SODIUM CHLORID 0.9% 500 ML IV PRN (01:15)
[2017-01-12] MEDS ORDERED: CHLORHEXIDINE GLUCONATE 2 % 1 PACK (2 CLOTHS) TOPICAL PRN (01:15)
[2017-01-12] MEDS ORDERED: POVIDONE IODINE 5% (ANTISEPSIS KIT) 4 APPLICATIONS EACH NARE PRN (01:15)
[2017-01-12 04:00] VITALS: BP 111/62; PULSE 78; RESP 22; TEMP 97.8; O2SAT 98
[2017-01-12] MEDS: SODIUM CHLOR 0.9% 1000 ML INJ 1,000 ML IV SCH ×3 (04:00→19:28)
[2017-01-12] MEDS: VANCOMYCIN INJ 1,750 MG in SODIUM CHLORID 0.9% 500 ML INJ 500 ML IV SCH ×2 (04:16→13:03)
[2017-01-12 07:09] VITALS: BP 127/69; PULSE 68; RESP 18; TEMP 96.6; O2SAT 95
[2017-01-12] MEDS: DOCUSATE SODIUM 50 MG/SENNA 8.6 MG TAB PO SCH ×2 (08:10→19:22)
[2017-01-12] MEDS ORDERED: PROPOFOL 200 MG/20 ML AMP IV ONE (09:37)
[2017-01-12 11:29] VITALS: BP 127/74; PULSE 68; RESP 18; TEMP 96.3; O2SAT 98
[2017-01-12] MEDS ORDERED: PHARMACY ORDERED LAB ONE (11:45)
--- NOTE | 2017-01-12 14:26 | HHI.PR ---
Addendum to Inpatient Note Addendum Reason: Additional Documentation Additional Information Chart reviewed. Most recent cultures negative Treating for Ac.baumanii and Bacillus, staph epiderm Traumatic wound infection, tendinitis and osteomyelitis On Cefepime IV and Vanco IV (dosing per pharmacy target trough 15-20) tentative stop date 02/04/2017. Please call ID in last week of treatment. Will coordinate at that time with Podiatry to assess wound clinically. Recommend wash prior to final insertion of any hardware after completion of 6 weeks of IV treatment. Weekly CBC with diff, CMP, CRP, Vanco trough (15-20 target) to be ordered and followed by hospitalist. Please call ID if any abnormal labs or change in clinical condition. Kym Peña Will follow prn. Please call ID in last week of IV antibiotic. Gabi Zamudio MD January 12, 2017 14:26
[2017-01-12 14:55] VITALS: BP 113/79; PULSE 94; RESP 18; TEMP 96.3; O2SAT 95
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
[2017-01-12] MEDS ORDERED: MIDAZOLAM HCL 5 MG/5 ML VIAL ONE (15:28)
[2017-01-12] MEDS ORDERED: Post-op Orders (for Pharmacy) MISC XX ONE (16:00)
[2017-01-12] MEDS ORDERED: NALOXONE HCL 0.4 MG/ML AMP IV PRN (16:00)
[2017-01-12] MEDS ORDERED: DO NOT ADM ANY ANTICOAGULANT DRUGS PRN (16:06)
[2017-01-12] MEDS ORDERED: *morphine SULFATE 8 MG/ML PERIprocedure ONLY ONE (16:24)
[2017-01-12 20:05] VITALS: BP 123/53; PULSE 91; RESP 21; TEMP 98.5; O2SAT 95
[2017-01-12] MEDS: traZODone HCL 100 MG TAB PO SCH (22:18)
[2017-01-12] MEDS: QUEtiapine FUMARATE 25 MG TAB PO SCH (22:18)
[2017-01-13] VITALS: BP 112/52; PULSE 88; RESP 16; TEMP 98.8; O2SAT 96
[2017-01-13] MEDS: HYDROmorphone HCL PF 1 MG/ML VIAL IV PUSH PRN ×7 (01:26→20:38)
[2017-01-13] MEDS: DOCUSATE SODIUM 50 MG/SENNA 8.6 MG TAB PO SCH ×2 (07:39→20:37)
[2017-01-13] MEDS: CEFEPIME INJ 2,000 MG in SODIUM CHLORIDE 0.9% INJ 100 ML IV SCH ×3 (07:39→23:52)
[2017-01-13 08:00] VITALS: BP 104/57; PULSE 89; RESP 18; TEMP 97.6; O2SAT 95
[2017-01-13] MEDS: SODIUM CHLOR 0.9% 1000 ML INJ 1,000 ML IV SCH ×2 (10:00→20:44)
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
[2017-01-13 12:00] VITALS: BP 114/55; PULSE 75; RESP 18; TEMP 97.4; O2SAT 93
[2017-01-13] MEDS: VANCOMYCIN INJ 2,500 MG in SODIUM CHLORID 0.9% 500 ML INJ 500 ML IV SCH ×2 (12:20→23:52)
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
[2017-01-13 16:00] VITALS: BP 113/54; PULSE 81; RESP 18; TEMP 96.3; O2SAT 93
[2017-01-13 19:55] VITALS: BP 139/69; PULSE 87; RESP 20; TEMP 96.2; O2SAT 96
[2017-01-13] MEDS: traZODone HCL 100 MG TAB PO SCH (20:35)
[2017-01-13] MEDS: QUEtiapine FUMARATE 25 MG TAB PO SCH (20:36)
[2017-01-13] MEDS: SODIUM CHLORIDE 0.9% FLUSH 10 ML FLUSH IVF PRN (20:37)
[2017-01-14] VITALS: BP 127/59; PULSE 75; RESP 16; TEMP 97.1; O2SAT 95
[2017-01-14] MEDS: HYDROmorphone HCL PF 1 MG/ML VIAL IV PUSH PRN (01:29)
[2017-01-14] MEDS ORDERED: HYDROmorphone HCL 2 MG TAB PO ONE (02:00)
[2017-01-14] MEDS: SODIUM CHLOR 0.9% 1000 ML INJ 1,000 ML IV SCH ×3 (03:29→23:44)
[2017-01-14 05:00] VITALS: BP 134/62; PULSE 85; RESP 16; TEMP 96.3; O2SAT 94
[2017-01-14 06:54] LABS: BICARBONATE 30.1 MEQ/L (21.0-32.0); POTASSIUM 3.8 MEQ/L (3.5-5.1)
[2017-01-14 06:56] LABS: AUTOMATED NEUTROPHIL # 3.7 TH/MM3 (1.8-7.7); BASOPHIL # 0.1 TH/MM3 (0-0.2); BASOPHIL % 1.2 % (0.0-2.0); EOSINOPHIL # 0.4 TH/MM3 (0-0.4); EOSINOPHIL % 5.9 % (0.0-4.0); HEMATOCRIT 32.6 % (39.0-51.0); HEMO FLAGS DIFF FINAL; LYMPH % 30.9 % (9.0-44.0); LYMPHOCYTE # 2.2 TH/MM3 (1.0-4.8); MEAN CELL VOLUME 87.4 FL (80.0-100.0); MEAN CORPUSCULAR HEMOGLOBIN 28.3 PG (27.0-34.0); MEAN CORPUSCULAR HGB CONC 32.4 % (32.0-36.0); MONO % 8.8 % (0.0-8.0); NEUT % 53.2 % (16.0-70.0); PLATELET COUNT 190 TH/MM3 (150-450); RED BLOOD COUNT 3.73 MIL/MM3 (4.50-5.90); RED CELL DISTRIBUTION WIDTH 13.5 % (11.6-17.2)
[2017-01-14 08:00] VITALS: BP 134/59; PULSE 65; RESP 18; TEMP 96.8; O2SAT 95
[2017-01-14] MEDS: CEFEPIME INJ 2,000 MG in SODIUM CHLORIDE 0.9% INJ 100 ML IV SCH ×3 (08:00→23:44)
[2017-01-14] MEDS: DOCUSATE SODIUM 50 MG/SENNA 8.6 MG TAB PO SCH ×2 (09:00→20:14)
[2017-01-14 12:00] VITALS: BP 129/63; PULSE 87; RESP 18; TEMP 96.6; O2SAT 94
[2017-01-14] MEDS: VANCOMYCIN INJ 2,500 MG in SODIUM CHLORID 0.9% 500 ML INJ 500 ML IV SCH ×2 (12:00→23:44)
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
[2017-01-14 16:00] VITALS: BP 142/85; PULSE 85; RESP 18; TEMP 96.4; O2SAT 97
[2017-01-14] MEDS: QUEtiapine FUMARATE 25 MG TAB PO SCH (20:14)
[2017-01-14] MEDS: traZODone HCL 100 MG TAB PO SCH (20:14)
[2017-01-14 20:30] VITALS: BP 123/77; PULSE 85; RESP 18; TEMP 98.1; O2SAT 96
[2017-01-15 00:30] VITALS: BP 106/51; PULSE 84; RESP 18; TEMP 97; O2SAT 95
[2017-01-15 04:35] VITALS: BP 125/68; PULSE 78; RESP 18; TEMP 97.2; O2SAT 95
[2017-01-15 08:00] VITALS: BP 140/76; PULSE 82; RESP 18; TEMP 97.6; O2SAT 95
[2017-01-15] MEDS: CEFEPIME INJ 2,000 MG in SODIUM CHLORIDE 0.9% INJ 100 ML IV SCH ×2 (08:00→16:00)
[2017-01-15] MEDS: FLUCONAZOLE 100 MG TAB PO SCH (10:29)
[2017-01-15] MEDS: DOCUSATE SODIUM 50 MG/SENNA 8.6 MG TAB PO SCH ×2 (10:30→20:43)
[2017-01-15] MEDS ORDERED: PHARMACY ORDERED LAB ONE (11:45)
[2017-01-15 12:00] VITALS: BP 149/61; PULSE 78; RESP 18; TEMP 97.5; O2SAT 96
[2017-01-15] MEDS: VANCOMYCIN INJ 2,500 MG in SODIUM CHLORID 0.9% 500 ML INJ 500 ML IV SCH ×2 (12:00→12:42)
[2017-01-15] MEDS: SODIUM CHLOR 0.9% 1000 ML INJ 1,000 ML IV SCH ×2 (12:00→20:43)
[2017-01-15] MEDS ORDERED: BUPIVACAINE/EPINEPHRINE 0.25% PF 10 ML VIAL ONE (12:07)
[2017-01-15] MEDS ORDERED: fentaNYL CITRATE 250 MCG/5 ML AMP ONE (12:13)
[2017-01-15] MEDS ORDERED: MIDAZOLAM HCL 2 MG/2 ML VIAL ONE (12:13)
[2017-01-15] MEDS ORDERED: Post-op Orders (for Pharmacy) MISC XX ONE (13:00)
[2017-01-15] MEDS ORDERED: *morphine SULFATE 8 MG/ML PERIprocedure ONLY ONE ×2 (13:09→13:26)
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
[2017-01-15] MEDS: HYDROmorphone HCL PF 1 MG/ML VIAL IV PUSH PRN ×3 (14:27→20:43)
[2017-01-15] MEDS: SODIUM CHLORIDE 0.9% FLUSH 10 ML FLUSH IVF PRN ×2 (14:32→20:42)
[2017-01-15] MEDS ORDERED: PROPOFOL 200 MG/20 ML AMP IV ONE (14:52)
[2017-01-15 16:00] VITALS: BP 101/50; PULSE 82; RESP 18; TEMP 98.4; O2SAT 97
--- NOTE | 2017-01-15 16:55 | HHI.PR ---
Addendum to Inpatient Note Addendum Reason: Additional Documentation Additional Information Case d.w Clinically doing well Continue Antibiotics and Diflucan Follow cultures Follow clinically I will be OOT from 01/16/17 to 01/21/2017. Other ID MDs covering for me. Please call center. Gabi Zamudio MD January 15, 2017 16:55
[2017-01-15 19:00] VITALS: BP 151/86; PULSE 86; RESP 18; TEMP 97; O2SAT 94
[2017-01-15] MEDS: traZODone HCL 100 MG TAB PO SCH (20:42)
[2017-01-15] MEDS: QUEtiapine FUMARATE 25 MG TAB PO SCH (20:42)
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
[2017-01-16] VITALS: BP 120/54; PULSE 81; RESP 17; TEMP 97.3; O2SAT 96
[2017-01-16] MEDS: CEFEPIME INJ 2,000 MG in SODIUM CHLORIDE 0.9% INJ 100 ML IV SCH ×3 (00:01→15:59)
[2017-01-16] MEDS: VANCOMYCIN INJ 2,500 MG in SODIUM CHLORID 0.9% 500 ML INJ 500 ML IV SCH ×2 (00:01→11:50)
[2017-01-16] MEDS: HYDROmorphone HCL PF 1 MG/ML VIAL IV PUSH PRN ×7 (00:02→19:55)
[2017-01-16 08:00] VITALS: BP 118/69; PULSE 93; RESP 18; TEMP 96.9; O2SAT 94
[2017-01-16] MEDS: DOCUSATE SODIUM 50 MG/SENNA 8.6 MG TAB PO SCH ×2 (09:00→19:48)
[2017-01-16] MEDS: SODIUM CHLOR 0.9% 1000 ML INJ 1,000 ML IV SCH ×2 (09:15→18:00)
[2017-01-16] MEDS: FLUCONAZOLE 100 MG TAB PO SCH (09:15)
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
[2017-01-16 12:00] VITALS: BP 111/60; PULSE 69; RESP 18; TEMP 95.8; O2SAT 96
[2017-01-16 12:18] VITALS: O2SAT 97
[2017-01-16 16:00] VITALS: BP 119/57; PULSE 75; RESP 18; TEMP 98.2; O2SAT 97
[2017-01-16] MEDS: QUEtiapine FUMARATE 25 MG TAB PO SCH (19:53)
[2017-01-16] MEDS: traZODone HCL 100 MG TAB PO SCH (19:54)
[2017-01-16] MEDS: SODIUM CHLORIDE 0.9% FLUSH 10 ML FLUSH IVF PRN (19:55)
[2017-01-16 20:05] VITALS: BP 132/76; PULSE 86; RESP 18; TEMP 97; O2SAT 96
[2017-01-17 00:05] VITALS: BP 131/62; PULSE 88; RESP 18; TEMP 98.2; O2SAT 95
[2017-01-17] MEDS: VANCOMYCIN INJ 2,500 MG in SODIUM CHLORID 0.9% 500 ML INJ 500 ML IV SCH ×3 (00:30→23:18)
[2017-01-17] MEDS: CEFEPIME INJ 2,000 MG in SODIUM CHLORIDE 0.9% INJ 100 ML IV SCH ×4 (00:30→23:18)
[2017-01-17] MEDS: SODIUM CHLOR 0.9% 1000 ML INJ 1,000 ML IV SCH ×2 (01:47→14:00)
[2017-01-17 08:00] VITALS: BP 156/71; PULSE 74; RESP 20; TEMP 96.9; O2SAT 96
[2017-01-17] MEDS: FLUCONAZOLE 100 MG TAB PO SCH (08:56)
[2017-01-17] MEDS: DOCUSATE SODIUM 50 MG/SENNA 8.6 MG TAB PO SCH ×2 (08:57→21:00)
[2017-01-17 09:37] VITALS: O2SAT 94
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
[2017-01-17] MEDS ORDERED: HYDROmorphone HCL PF 1 MG/ML VIAL IV PUSH PRN ×2 (11:00→12:00)
[2017-01-17 12:00] VITALS: BP 128/73; PULSE 79; RESP 20; TEMP 96.8; O2SAT 96
[2017-01-17 16:00] VITALS: BP 160/96; PULSE 75; RESP 22; TEMP 97.4; O2SAT 94
[2017-01-17 20:25] VITALS: BP 131/60; PULSE 78; RESP 18; TEMP 97.3; O2SAT 95
[2017-01-17] MEDS: QUEtiapine FUMARATE 25 MG TAB PO SCH (22:08)
[2017-01-17] MEDS: traZODone HCL 100 MG TAB PO SCH (22:09)
[2017-01-18] VITALS: BP 126/57; PULSE 87; RESP 18; TEMP 98.5; O2SAT 94
[2017-01-18] MEDS: FLUCONAZOLE 100 MG TAB PO SCH (07:42)
[2017-01-18 08:00] VITALS: BP 161/96; PULSE 79; RESP 18; TEMP 96.8; O2SAT 96
[2017-01-18] MEDS: CEFEPIME INJ 2,000 MG in SODIUM CHLORIDE 0.9% INJ 100 ML IV SCH ×3 (08:45→23:54)
[2017-01-18] MEDS: DOCUSATE SODIUM 50 MG/SENNA 8.6 MG TAB PO SCH ×2 (09:00→19:39)
[2017-01-18] MEDS: SODIUM CHLOR 0.9% 1000 ML INJ 1,000 ML IV SCH ×3 (10:00→20:00)
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
[2017-01-18 10:20] VITALS: O2SAT 94
[2017-01-18 12:00] VITALS: BP 124/64; PULSE 87; RESP 18; TEMP 97.2; O2SAT 95
[2017-01-18] MEDS: VANCOMYCIN INJ 2,500 MG in SODIUM CHLORID 0.9% 500 ML INJ 500 ML IV SCH ×2 (12:00→23:54)
[2017-01-18 16:00] VITALS: BP 133/71; PULSE 74; RESP 18; TEMP 98; O2SAT 95
[2017-01-18 19:00] VITALS: BP 119/54; PULSE 91; RESP 18; TEMP 97.6; O2SAT 94
[2017-01-18] MEDS: traZODone HCL 100 MG TAB PO SCH (19:38)
[2017-01-18] MEDS: QUEtiapine FUMARATE 25 MG TAB PO SCH (19:38)
[2017-01-19] VITALS: BP 130/59; PULSE 78; RESP 17; TEMP 96; O2SAT 94
[2017-01-19] MEDS: SODIUM CHLOR 0.9% 1000 ML INJ 1,000 ML IV SCH ×2 (06:00→16:00)
[2017-01-19 08:00] VITALS: BP 113/72; PULSE 80; RESP 18; TEMP 96.9; O2SAT 94
[2017-01-19] MEDS: CEFEPIME INJ 2,000 MG in SODIUM CHLORIDE 0.9% INJ 100 ML IV SCH ×3 (08:42→23:54)
[2017-01-19] MEDS: DOCUSATE SODIUM 50 MG/SENNA 8.6 MG TAB PO SCH ×2 (08:42→19:52)
[2017-01-19] MEDS: FLUCONAZOLE 100 MG TAB PO SCH (08:42)
[2017-01-19] MEDS ORDERED: PHARMACY ORDERED LAB ONE (11:45)
[2017-01-19 12:00] VITALS: BP 99/64; PULSE 83; RESP 18; TEMP 99.4; O2SAT 99
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
[2017-01-19] MEDS: VANCOMYCIN INJ 2,500 MG in SODIUM CHLORID 0.9% 500 ML INJ 500 ML IV SCH ×2 (12:49→23:53)
[2017-01-19 16:00] VITALS: BP 120/69; PULSE 83; RESP 18; TEMP 97.4; O2SAT 95
[2017-01-19] MEDS: QUEtiapine FUMARATE 25 MG TAB PO SCH (19:51)
[2017-01-19] MEDS: traZODone HCL 100 MG TAB PO SCH (19:51)
[2017-01-19 20:05] VITALS: BP 121/68; PULSE 79; RESP 18; TEMP 97.7; O2SAT 96
[2017-01-20 00:05] VITALS: BP 119/63; PULSE 80; RESP 18; TEMP 97.6; O2SAT 95
[2017-01-20] MEDS: SODIUM CHLOR 0.9% 1000 ML INJ 1,000 ML IV SCH ×2 (02:00→13:48)
[2017-01-20 04:40] VITALS: BP 120/65; PULSE 81; RESP 18; TEMP 96.7; O2SAT 96
[2017-01-20 07:38] VITALS: BP 136/70; PULSE 77; RESP 18; TEMP 97; O2SAT 93
[2017-01-20] MEDS: DOCUSATE SODIUM 50 MG/SENNA 8.6 MG TAB PO SCH ×2 (09:00→21:00)
[2017-01-20] MEDS: FLUCONAZOLE 100 MG TAB PO SCH (09:01)
[2017-01-20] MEDS: CEFEPIME INJ 2,000 MG in SODIUM CHLORIDE 0.9% INJ 100 ML IV SCH ×2 (09:03→16:00)
[2017-01-20] MEDS ORDERED: PHARMACY ORDERED LAB ONE (11:45)
[2017-01-20 11:50] VITALS: BP 125/59; PULSE 75; RESP 18; TEMP 96.5; O2SAT 97
[2017-01-20] MEDS ORDERED: PROPOFOL 200 MG/20 ML AMP IV ONE (12:00)
[2017-01-20] MEDS: VANCOMYCIN INJ 2,500 MG in SODIUM CHLORID 0.9% 500 ML INJ 500 ML IV SCH (13:46)
[2017-01-20 15:17] VITALS: BP 100/59; PULSE 73; RESP 18; TEMP 97.1; O2SAT 95
[2017-01-20] MEDS ORDERED: BUPIVACAINE HCL PF 0.25% 30 ML VIAL ONE (16:07)
[2017-01-20] MEDS ORDERED: MIDAZOLAM HCL 2 MG/2 ML VIAL ONE (16:23)
[2017-01-20] MEDS ORDERED: fentaNYL CITRATE 250 MCG/5 ML AMP ONE (16:24)
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
--- NOTE | 2017-01-20 18:16 | HHI.PR ---
Immediate Post Op Note Procedure Date: January 20, 2017 Pre Op Diagnosis: Large residual wound L medial heel, s/p LONG-TERM and open calcaneal fracture, open achilles tendon injury, open posterior tibial artery injury Post Op Diagnosis: same Surgeon: Dorcas Wilder DPM Soil Scientist(s): staff Procedure: Irrigation and debridement with wound vac change and deep cultures L ankle/foot Findings: Consistent with diagnosis. Medial calcaneus/achilles area with large soft tissue defect, healthy granular appearance to tissue. No purulence. No necrotic tissue noted Wound approximately 25cm x 20cm and 2cm depth and spans from below medial malleolus to plantar skin of foot at heel, and posteriorly to medial aspect of achilles. Sutures intact to medial ankle laceration area with no dehiscence noted. Irrigation of the area with 3L NS with curettage of the area and deep culture taken of residual granulation tissue. Wound vac reapplied. Continue 125mmHg medium continuous. Additional Information: N/a Complications: None Specimen(s) removed: Deep tissue culture L medial heel Estimated blood loss: minimal Anesthesia: MAC Drains: None Tourniquet time (min at mmHg) n/a Patient to: PACU Patient Condition: Good Date/Time of Procedure: SEE SURGICAL CARE RECORD Dorcas Wilder DPM January 20, 2017 18:16
[2017-01-20] MEDS: SODIUM CHLORIDE 0.9% FLUSH 10 ML FLUSH IVF PRN (18:26)
[2017-01-20 20:00] VITALS: BP 138/67; PULSE 91; RESP 20; TEMP 98; O2SAT 96
[2017-01-20] MEDS: traZODone HCL 100 MG TAB PO SCH (21:10)
[2017-01-20] MEDS: QUEtiapine FUMARATE 25 MG TAB PO SCH (21:10)
[2017-01-21] MEDS: CEFEPIME INJ 2,000 MG in SODIUM CHLORIDE 0.9% INJ 100 ML IV SCH ×4 (00:44→23:50)
[2017-01-21] MEDS: VANCOMYCIN INJ 2,500 MG in SODIUM CHLORID 0.9% 500 ML INJ 500 ML IV SCH ×3 (02:28→23:50)
[2017-01-21 02:53] VITALS: BP 103/51; PULSE 81; RESP 22; TEMP 98; O2SAT 94
[2017-01-21 04:05] VITALS: BP 130/60; PULSE 80; RESP 20; TEMP 97.7; O2SAT 94
[2017-01-21] MEDS: FLUCONAZOLE 100 MG TAB PO SCH (07:36)
[2017-01-21 07:45] VITALS: BP 108/49; PULSE 77; RESP 19; TEMP 96.4; O2SAT 95
[2017-01-21] MEDS: SODIUM CHLOR 0.9% 1000 ML INJ 1,000 ML IV SCH ×3 (08:00→21:14)
[2017-01-21] MEDS: DOCUSATE SODIUM 50 MG/SENNA 8.6 MG TAB PO SCH ×2 (09:00→20:16)
[2017-01-21 12:38] VITALS: BP 123/72; PULSE 75; RESP 19; TEMP 97; O2SAT 94
[2017-01-21 16:00] VITALS: BP 144/70; PULSE 76; RESP 19; TEMP 97; O2SAT 94
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
[2017-01-21] MEDS: QUEtiapine FUMARATE 25 MG TAB PO SCH (20:15)
[2017-01-21] MEDS: traZODone HCL 100 MG TAB PO SCH (20:16)
[2017-01-21 21:00] VITALS: BP 154/86; PULSE 80; RESP 18; TEMP 96.6; O2SAT 96
[2017-01-22 00:10] VITALS: BP 139/72; PULSE 82; RESP 17; TEMP 97.4; O2SAT 97
[2017-01-22] MEDS: SODIUM CHLOR 0.9% 1000 ML INJ 1,000 ML IV SCH ×2 (04:00→09:14)
[2017-01-22 05:00] VITALS: BP 126/70; PULSE 76; RESP 17; TEMP 97.2; O2SAT 98
[2017-01-22 07:34] VITALS: BP 128/84; PULSE 71; RESP 18; TEMP 97.8; O2SAT 95
[2017-01-22] MEDS: DOCUSATE SODIUM 50 MG/SENNA 8.6 MG TAB PO SCH ×2 (09:00→19:46)
[2017-01-22] MEDS: FLUCONAZOLE 100 MG TAB PO SCH (09:14)
[2017-01-22] MEDS: CEFEPIME INJ 2,000 MG in SODIUM CHLORIDE 0.9% INJ 100 ML IV SCH ×3 (09:16→23:53)
[2017-01-22 11:12] VITALS: BP 138/63; PULSE 75; RESP 18; TEMP 96.8; O2SAT 95
[2017-01-22] MEDS: SODIUM CHLORIDE 0.9% FLUSH 10 ML FLUSH IVF PRN ×2 (12:19→16:38)
[2017-01-22] MEDS: VANCOMYCIN INJ 2,500 MG in SODIUM CHLORID 0.9% 500 ML INJ 500 ML IV SCH ×2 (12:19→23:53)
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
[2017-01-22 16:00] VITALS: BP 129/86; PULSE 82; RESP 18; TEMP 97.2; O2SAT 96
[2017-01-22 19:00] VITALS: BP 118/79; PULSE 89; RESP 19; TEMP 98; O2SAT 97
[2017-01-22] MEDS: traZODone HCL 100 MG TAB PO SCH (19:46)
[2017-01-22] MEDS: QUEtiapine FUMARATE 25 MG TAB PO SCH (19:46)
[2017-01-23 00:30] VITALS: BP 124/55; PULSE 82; RESP 18; TEMP 96.9; O2SAT 96
[2017-01-23 04:15] VITALS: BP 101/50; PULSE 69; RESP 18; TEMP 97.6; O2SAT 95
[2017-01-23 08:00] VITALS: BP 96/49; PULSE 88; RESP 18; TEMP 97.7; O2SAT 96
[2017-01-23] MEDS: DOCUSATE SODIUM 50 MG/SENNA 8.6 MG TAB PO SCH ×2 (09:00→20:29)
[2017-01-23] MEDS ORDERED: PROPOFOL 200 MG/20 ML AMP IV ONE (09:27)
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
[2017-01-23] MEDS: SODIUM CHLOR 0.9% 1000 ML INJ 1,000 ML IV SCH ×2 (09:34→20:00)
[2017-01-23] MEDS: FLUCONAZOLE 100 MG TAB PO SCH (10:29)
[2017-01-23] MEDS: CEFEPIME INJ 2,000 MG in SODIUM CHLORIDE 0.9% INJ 100 ML IV SCH ×3 (10:31→23:55)
[2017-01-23 12:00] VITALS: BP 145/85; PULSE 80; RESP 18; TEMP 97.8; O2SAT 97
[2017-01-23] MEDS: VANCOMYCIN INJ 2,500 MG in SODIUM CHLORID 0.9% 500 ML INJ 500 ML IV SCH ×2 (12:56→23:54)
[2017-01-23] MEDS: SODIUM CHLORIDE 0.9% FLUSH 10 ML FLUSH IVF PRN ×2 (12:56→16:51)
[2017-01-23] MEDS ORDERED: MIDAZOLAM HCL 2 MG/2 ML VIAL ONE (17:45)
[2017-01-23] MEDS ORDERED: GENTAMICIN SULFATE 80 MG/2 ML VIAL IRRIGATION ONE (18:11)
--- NOTE | 2017-01-23 18:20 | HHI.PR ---
Immediate Post Op Note Procedure Date: Jan 23, 2017 Pre Op Diagnosis: Large residual wound L medial heel, s/p DETENTION and open calcaneal fracture, open achilles tendon injury, open posterior tibial artery injury Post Op Diagnosis: Surgeon: Dorcas Wilder DPM Bowling Ball Patcher(s): Staff Procedure: Irrigation and debridement with wound vac change and deep cultures L ankle/foot Findings: Consistent with diagnosis. Medial calcaneus/achilles area with large soft tissue defect, healthy granular appearance to tissue. No purulence. No necrotic tissue noted Wound still approximately 25cm x 20cm and 2cm depth and spans from below medial malleolus to plantar skin of foot at heel, and posteriorly to medial aspect of achilles. Sutures intact to medial ankle laceration area with no dehiscence noted. Irrigation of the area with 3L NS with curettage of the area and deep culture taken of residual granulation tissue. Wound vac reapplied. Continue 125mmHg medium continuous. Complications: None Specimen(s) removed: Culture R lateral heel Estimated blood loss: Minimal Anesthesia: General Drains: None IVF Tourniquet time (min at mmHg) n/a Patient to: PACU Patient Condition: Good Date/Time of Procedure: SEE SURGICAL CARE RECORD Dorcas Wilder DPM Jan 23, 2017 18:20
[2017-01-23] MEDS ORDERED: DO NOT ADM ANY ANTICOAGULANT DRUGS PRN (18:22)
[2017-01-23] MEDS ORDERED: *morphine SULFATE 8 MG/ML PERIprocedure ONLY ONE ×2 (18:27→18:52)
[2017-01-23 20:15] VITALS: BP 150/77; PULSE 83; RESP 18; TEMP 97.1; O2SAT 100
[2017-01-23] MEDS: QUEtiapine FUMARATE 25 MG TAB PO SCH (20:28)
[2017-01-23] MEDS: traZODone HCL 100 MG TAB PO SCH (20:28)
[2017-01-24 00:15] VITALS: BP 116/56; PULSE 90; RESP 18; TEMP 98.5; O2SAT 98
[2017-01-24 04:15] VITALS: BP 137/74; PULSE 86; RESP 18; TEMP 97.6; O2SAT 96
[2017-01-24] MEDS: SODIUM CHLOR 0.9% 1000 ML INJ 1,000 ML IV SCH ×2 (06:00→16:00)
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
[2017-01-24 08:00] VITALS: BP 115/60; PULSE 76; RESP 18; TEMP 96.5; O2SAT 95
[2017-01-24] MEDS: CEFEPIME INJ 2,000 MG in SODIUM CHLORIDE 0.9% INJ 100 ML IV SCH ×2 (08:18→16:53)
[2017-01-24] MEDS: FLUCONAZOLE 100 MG TAB PO SCH (08:18)
[2017-01-24] MEDS: DOCUSATE SODIUM 50 MG/SENNA 8.6 MG TAB PO SCH ×2 (08:19→20:37)
[2017-01-24 12:00] VITALS: BP 143/62; PULSE 73; RESP 18; TEMP 96.5; O2SAT 95
[2017-01-24] MEDS: VANCOMYCIN INJ 2,500 MG in SODIUM CHLORID 0.9% 500 ML INJ 500 ML IV SCH (12:19)
--- NOTE | 2017-01-24 12:21 | PD.POD ---
Subjective Podiatric Problems s/p wound vac change R medial heel Pain scale used: 0-10 numeric scale Pain score: 9 (-during VAC change) Past Med/Surg/Social History Social History Smoking Status: Former Smoker Objective Vital Signs Vital Signs Date Time Temp Pulse Resp B/P Pulse Ox O2 Delivery O2 Flow Rate FiO2 01/24/17 08:00 96.5 76 18 115/60 95 01/24/17 04:15 97.6 86 18 137/74 96 01/24/17 00:15 98.5 90 18 116/56 98 01/23/17 20:15 97.1 83 18 150/77 100 01/23/17 19:05 78 16 108/75 100 Room Air 01/23/17 18:45 78 16 123/66 97 Room Air 01/23/17 18:30 81 16 122/66 99 Room Air 01/23/17 18:20 98.7 78 16 120/68 97 Nasal Cannula 2 Coded Allergies: Penicillin (Verified Allergy, Unknown, 12/18/16) Other Results Microbiology Date/Time Procedure Status Source Growth 01/23/17 00:00 Gram Stain - Final Resulted Wound Foot 01/23/17 00:00 Wound Culture Resulted Wound Foot Pending 01/23/17 00:00 Fungal Smear - Final Resulted Wound Foot NO FUNGAL ELEMENTS SEEN. 01/23/17 00:00 Fungal Culture Resulted Wound Foot Pending 01/23/17 00:00 Acid Fast Stain Received Wound Foot Pending 01/23/17 00:00 Mycobacterial Culture Received Wound Foot Pending 01/20/17 17:30 Acid Fast Stain - Final Resulted Abscess Heel NO ACID FAST BACILLI SEEN 01/20/17 17:30 Mycobacterial Culture Resulted Abscess Heel Pending Physical Exam Remarks wound vac functioning properly Assessment & Plan A/P R foot medial foot wound Ok with transfer to [place] if primary team wishes to do so. Patient can be evaluated and treated for further wound care and surgical issues there in the future. Cultures now showing no growth Will plan to continue wound vac changes and until wound ready to receive skin graft Dorcas Wilder DPM Jan 24, 2017 12:21
[2017-01-24 16:00] VITALS: BP 119/63; PULSE 74; RESP 18; TEMP 96.6; O2SAT 98
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
[2017-01-24] MEDS: QUEtiapine FUMARATE 25 MG TAB PO SCH (20:37)
[2017-01-24] MEDS: traZODone HCL 100 MG TAB PO SCH (20:37)
[2017-01-24 20:40] VITALS: BP 104/54; PULSE 82; RESP 18; TEMP 97.8; O2SAT 95
[2017-01-25] MEDS: VANCOMYCIN INJ 2,500 MG in SODIUM CHLORID 0.9% 500 ML INJ 500 ML IV SCH ×2 (00:04→11:33)
[2017-01-25 00:05] VITALS: BP 131/72; PULSE 86; RESP 19; TEMP 97.3; O2SAT 93
[2017-01-25] MEDS: CEFEPIME INJ 2,000 MG in SODIUM CHLORIDE 0.9% INJ 100 ML IV SCH ×3 (00:05→16:03)
[2017-01-25 08:00] VITALS: BP 143/67; PULSE 101; RESP 18; TEMP 96.4; O2SAT 96
[2017-01-25] MEDS: DOCUSATE SODIUM 50 MG/SENNA 8.6 MG TAB PO SCH ×2 (09:00→21:00)
[2017-01-25] MEDS: FLUCONAZOLE 100 MG TAB PO SCH (09:14)
[2017-01-25] MEDS: SODIUM CHLOR 0.9% 1000 ML INJ 1,000 ML IV SCH ×2 (09:15→21:41)
[2017-01-25 11:59] VITALS: BP 125/81; PULSE 78; RESP 18; TEMP 95.9; O2SAT 97
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
[2017-01-25 16:00] VITALS: BP 119/71; PULSE 91; RESP 18; TEMP 96.6; O2SAT 95
[2017-01-25 19:45] VITALS: BP 150/84; PULSE 84; RESP 19; TEMP 98.5; O2SAT 98
[2017-01-25] MEDS: QUEtiapine FUMARATE 25 MG TAB PO SCH (21:40)
[2017-01-25] MEDS: traZODone HCL 100 MG TAB PO SCH (21:40)
[2017-01-26] MEDS: VANCOMYCIN INJ 2,500 MG in SODIUM CHLORID 0.9% 500 ML INJ 500 ML IV SCH ×3 (00:58→23:43)
[2017-01-26] MEDS: CEFEPIME INJ 2,000 MG in SODIUM CHLORIDE 0.9% INJ 100 ML IV SCH ×4 (00:58→23:43)
[2017-01-26 01:00] VITALS: BP 103/51; PULSE 83; RESP 18; TEMP 98.3; O2SAT 96
[2017-01-26 07:17] VITALS: BP 140/75; PULSE 81; RESP 19; TEMP 97.8; O2SAT 97
[2017-01-26] MEDS: SODIUM CHLOR 0.9% 1000 ML INJ 1,000 ML IV SCH ×2 (08:00→18:00)
[2017-01-26] MEDS: DOCUSATE SODIUM 50 MG/SENNA 8.6 MG TAB PO SCH ×2 (09:00→21:00)
[2017-01-26] MEDS: FLUCONAZOLE 100 MG TAB PO SCH (09:01)
[2017-01-26] MEDS ORDERED: ONDANSETRON HCL 4 MG/2 ML VIAL IV PUSH ONE (10:53)
[2017-01-26] MEDS ORDERED: PROPOFOL 200 MG/20 ML AMP IV ONE (10:53)
[2017-01-26] MEDS ORDERED: ePHEDrine/NS 25 MG/5 ML SYR IV ONE (10:53)
[2017-01-26 11:21] LABS: APTT (PATIENT) 29.2 SEC (24.3-30.1); PROTHROMBIN TIME - PATIENT 11.4 SEC (9.8-11.6)
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
[2017-01-26 11:55] VITALS: BP 151/95; PULSE 79; RESP 19; TEMP 96; O2SAT 95
[2017-01-26 15:58] VITALS: BP 163/90; PULSE 93; RESP 16; TEMP 97.6; O2SAT 100
[2017-01-26] MEDS ORDERED: MIDAZOLAM HCL 2 MG/2 ML VIAL ONE (17:01)
[2017-01-26] MEDS ORDERED: fentaNYL CITRATE 250 MCG/5 ML AMP ONE (17:02)
[2017-01-26] MEDS ORDERED: *morphine SULFATE 8 MG/ML PERIprocedure ONLY ONE ×2 (17:34→17:44)
[2017-01-26] MEDS ORDERED: DO NOT ADM ANY ANTICOAGULANT DRUGS PRN (17:45)
--- NOTE | 2017-01-26 18:49 | MP ---
cc: IDANIA INMAN DATE OF OPERATION 01/26/[address] Idania Inman [employer] None. PREOPERATIVE DIAGNOSIS Left heel ulceration. POSTOPERATIVE DIAGNOSES Left heel ulceration. PROCEDURE PERFORMED Left foot heel debridement and wound VAC application. PATHOLOGY pathology sent was cultures for microbiology. ANESTHESIA MAC HEMOSTASIS Anatomical dissection. ESTIMATED BLOOD LOSS Less than 10 ml. INJECTABLES None. COMPLICATIONS None. INDICATIONS Mr. Helms is a 51-year-old male patient well-known to myself and my service. The patient had a traumatic ulceration to the left heel. He cannot tolerate bedside dressing changes, so decision was made to change the dressing today in the operating room. The procedure was explained. The consent was signed. No guarantees were given. PROCEDURE Under mild sedation the patient was brought into the operating room, stayed on his stretcher. He was sedated by anesthesia and the foot was scrubbed, prepped and draped in the usual aseptic manner. Attention was directed to the left foot. Half of the sutures were removed and skin was well coapted. They were replaced with Steri-Strips. The wound was sharply debrided with a #15 scalpel. The wound is notably smaller and more granular than it had been in previous surgeries. Approximately 10 cm long by 3 cm wide by 0.5 cm deep. There is some exposed Achilles tendon, approximately 25% medially. No purulent drainage. No exposed bone, one small area of deep probing is noted. Copious amounts of sterile saline were then used to cleanse the freshly divided wound and Adaptic was placed over the Achilles tendon and the wound VAC was placed, set to 125 mmHg. Estimated blood loss was minimal. The patient tolerated the procedure and the anesthesia well. A well-padded dressing of cast padding and Rob bandage was applied. Idania Inman LMW/EO /5:16 PM /6:42 PM
[2017-01-26 20:41] VITALS: BP 138/82; PULSE 91; RESP 17; TEMP 97.2; O2SAT 94
[2017-01-26] MEDS: QUEtiapine FUMARATE 25 MG TAB PO SCH (21:11)
[2017-01-26] MEDS: traZODone HCL 100 MG TAB PO SCH (21:11)
[2017-01-27] VITALS: BP 137/84; PULSE 98; RESP 16; TEMP 97.5; O2SAT 94
[2017-01-27] MEDS: SODIUM CHLOR 0.9% 1000 ML INJ 1,000 ML IV SCH ×2 (04:00→14:00)
[2017-01-27 08:00] VITALS: BP 139/69; PULSE 80; RESP 20; TEMP 96.5; O2SAT 97
[2017-01-27] MEDS: CEFEPIME INJ 2,000 MG in SODIUM CHLORIDE 0.9% INJ 100 ML IV SCH ×3 (08:13→23:36)
[2017-01-27] MEDS: FLUCONAZOLE 100 MG TAB PO SCH (08:13)
[2017-01-27] MEDS: DOCUSATE SODIUM 50 MG/SENNA 8.6 MG TAB PO SCH ×2 (09:00→21:00)
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
--- NOTE | 2017-01-27 11:31 | RADRPT ---
EXAM DATE/TIME: 01/27/2017 11:06 CORRECTION Corrected on: January 27, 2017; [facility] COMPARISON: CHEST SINGLE AP, December 18, 2016, 11:33. INDICATIONS : PICC line placement. MEDICAL HISTORY : None. SURGICAL HISTORY : None. ENCOUNTER: Initial ACUITY: 1 day PAIN SCORE: 0/10 LOCATION: Right chest FINDINGS: A single view of the chest demonstrates the lungs to be symmetrically aerated without evidence of mas s, infiltrate or effusion. The cardiomediastinal contours are unremarkable. Osseous structures are intact. CONCLUSION: Right PICC line catheter tip is in the medial subclavian region, at the origin of the superior vena c kashif. No evidence of pneumothorax. Jose Rod MD on January 27, 2017 at 13:14 Board Certified Radiologist. This report was verified electronically.
[2017-01-27] MEDS ORDERED: PHARMACY ORDERED LAB ONE (11:45)
[2017-01-27 12:00] VITALS: BP 140/77; PULSE 89; RESP 20; TEMP 97.1; O2SAT 92
[2017-01-27] MEDS ORDERED: SODIUM CHLORIDE 0.9% FLUSH 10 ML FLUSH IV FLUSH PRN (12:00)
[2017-01-27] MEDS: VANCOMYCIN INJ 2,500 MG in SODIUM CHLORID 0.9% 500 ML INJ 500 ML IV SCH ×3 (13:14→23:36)
--- NOTE | 2017-01-27 14:42 | RADRPT ---
EXAM DATE/TIME: 01/27/2017 13:40 [facility] COMPARISON: CHEST SINGLE AP, January 27, 2017, 11:06. INDICATIONS : PICC line placement.Patient states pain in chest after line was inserted. MEDICAL HISTORY : None. SURGICAL HISTORY : None. ENCOUNTER: Subsequent ACUITY: 1 week PAIN SCORE: 9/10 LOCATION: Bilateral chest FINDINGS: The lungs are symmetrically aerated and clear. The heart is normal in size. PICC line catheter tip projects at the cavoatrial junction. No evidence of pneumothorax. CONCLUSION: PICC line in good position. The lungs are clear. Jose Rod MD on January 27, 2017 at 14:39 Board Certified Radiologist. This report was verified electronically.
[2017-01-27 16:00] VITALS: BP 129/65; PULSE 53; RESP 20; TEMP 96.5; O2SAT 93
[2017-01-27 19:00] VITALS: BP 127/58; PULSE 74; RESP 16; TEMP 96.7; O2SAT 96
--- NOTE | 2017-01-27 22:16 | HHI.PR ---
Blank section for building Received call from RN that patient has left AMA. Jasmyn Rizvi Jan 27, 2017 22:16
[2017-01-27] MEDS: QUEtiapine FUMARATE 25 MG TAB PO SCH (23:35)
[2017-01-27] MEDS: traZODone HCL 100 MG TAB PO SCH (23:35)
[2017-01-28] VITALS: BP 147/82; PULSE 78; RESP 15; TEMP 97; O2SAT 93
[2017-01-28] MEDS: FLUCONAZOLE 100 MG TAB PO SCH (07:41)
[2017-01-28] MEDS: DOCUSATE SODIUM 50 MG/SENNA 8.6 MG TAB PO SCH ×2 (07:41→21:32)
[2017-01-28] MEDS: CEFEPIME INJ 2,000 MG in SODIUM CHLORIDE 0.9% INJ 100 ML IV SCH ×2 (07:42→17:26)
[2017-01-28] MEDS: SODIUM CHLORIDE 0.9% FLUSH 10 ML FLUSH IV FLUSH SCH (07:43)
[2017-01-28 07:54] LABS: AUTOMATED NEUTROPHIL # 4.1 TH/MM3 (1.8-7.7); BASOPHIL # 0.1 TH/MM3 (0-0.2); EOSINOPHIL # 0.2 TH/MM3 (0-0.4); EOSINOPHIL % 2.9 % (0.0-4.0); HEMATOCRIT 33.6 % (39.0-51.0); HEMO FLAGS DIFF FINAL; LYMPH % 28.9 % (9.0-44.0); MEAN CELL VOLUME 86.2 FL (80.0-100.0); MEAN CORPUSCULAR HEMOGLOBIN 27.9 PG (27.0-34.0); MEAN CORPUSCULAR HGB CONC 32.4 % (32.0-36.0); MONO % 7.9 % (0.0-8.0); NEUT % 59.3 % (16.0-70.0); PLATELET COUNT 167 TH/MM3 (150-450); RED CELL DISTRIBUTION WIDTH 13.7 % (11.6-17.2); WHITE BLOOD COUNT 6.9 TH/MM3 (4.0-11.0)
[2017-01-28 08:01] VITALS: BP 138/76; PULSE 79; RESP 16; TEMP 96.1; O2SAT 95
[2017-01-28] MEDS: SODIUM CHLOR 0.9% 1000 ML INJ 1,000 ML IV SCH ×2 (10:00→20:01)
[2017-01-28] MEDS ORDERED: HALOPERIDOL LACTATE 5 MG/ML AMP IM PRN (11:30)
[2017-01-28] MEDS ORDERED: HALOPERIDOL LACTATE 5 MG/ML AMP IV PUSH PRN (12:00)
[2017-01-28 12:05] VITALS: BP 148/77; PULSE 69; RESP 20; TEMP 95.7; O2SAT 97
[2017-01-28] MEDS: VANCOMYCIN INJ 2,500 MG in SODIUM CHLORID 0.9% 500 ML INJ 500 ML IV SCH (13:09)
--- NOTE | 2017-01-28 13:47 | HHI.PR ---
Addendum to Inpatient Note Addendum Reason: Additional Documentation Additional Information d/w she informs me the base of the wound during intraop wound exams for wound vac change have been clean with no clinical evidence of infection. Fungal cultures have grown mold on subsequent cultures possible contaminants. plans on 2 more weeks of wash outs possibly followed by surgeries to take care of structural issues. I will continue Cefepime as planned for 6 weeks. DC IV Vanco Start Voriconazole. follow clinically. Will touch base with podiatry again next week about plans for structural surgeries. I will be OOT from 01/29/2017 to 02/01/2017. Other MDs to cover for me. Gabi Zamudio MD Jan 28, 2017 13:47
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
[2017-01-28 16:00] VITALS: BP 142/78; PULSE 71; RESP 20; TEMP 96.9; O2SAT 96
[2017-01-28 20:00] VITALS: BP 127/74; PULSE 74; RESP 16; TEMP 95.6; O2SAT 95
[2017-01-28] MEDS: VORICONAZOLE 200 MG TAB PO SCH (21:32)
[2017-01-28] MEDS: traZODone HCL 100 MG TAB PO SCH (21:32)
[2017-01-28] MEDS: QUEtiapine FUMARATE 25 MG TAB PO SCH (21:32)
[2017-01-29] VITALS (7 sets, daily range): BP systolic 103–178; BP diastolic 58–97; PULSE 55–81; RESP 18–20; TEMP 96–97.7; O2SAT 94–97
[2017-01-29] MEDS: CEFEPIME INJ 2,000 MG in SODIUM CHLORIDE 0.9% INJ 100 ML IV SCH ×5 (00:06→23:27)
[2017-01-29] MEDS: SODIUM CHLOR 0.9% 1000 ML INJ 1,000 ML IV SCH (00:06)
[2017-01-29] MEDS ORDERED: LACTATED RINGER'S 1000 ML IV PRN (01:00)
[2017-01-29] MEDS ORDERED: CHLORHEXIDINE GLUCONATE 2 % 1 PACK (2 CLOTHS) TOPICAL PRN (01:00)
[2017-01-29] MEDS ORDERED: INSULIN HUMAN REGULAR 1,000 UNITS/10 ML VIAL SQ PRN (01:00)
[2017-01-29] MEDS ORDERED: SODIUM CHLORID 0.9% 500 ML IV PRN (01:00)
[2017-01-29] MEDS ORDERED: METOPROLOL TARTRATE 25 MG TAB PO PRN (01:00)
[2017-01-29] MEDS ORDERED: POVIDONE IODINE 5% (ANTISEPSIS KIT) 4 APPLICATIONS EACH NARE PRN (01:00)
[2017-01-29] MEDS: DOCUSATE SODIUM 50 MG/SENNA 8.6 MG TAB PO SCH ×2 (09:00→21:05)
[2017-01-29] MEDS: VORICONAZOLE 200 MG TAB PO SCH ×2 (09:00→21:03)
[2017-01-29] MEDS: SODIUM CHLORIDE 0.9% FLUSH 10 ML FLUSH IV FLUSH SCH (09:13)
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
[2017-01-29] MEDS ORDERED: PROPOFOL 200 MG/20 ML AMP IV ONE (12:00)
[2017-01-29] MEDS ORDERED: PHENYLEPH/NS 1000 MCG/10 ML SYR IV ONE (12:00)
[2017-01-29] MEDS ORDERED: ONDANSETRON HCL 4 MG/2 ML VIAL IV PUSH ONE (12:00)
[2017-01-29] MEDS ORDERED: ePHEDrine/NS 25 MG/5 ML SYR IV ONE (12:00)
[2017-01-29] MEDS ORDERED: LORazepam 2 MG TAB PO PRN (15:45)
[2017-01-29] MEDS ORDERED: BUPIVACAINE HCL PF 0.25% 30 ML VIAL ONE (16:11)
[2017-01-29] MEDS ORDERED: HYDROmorphone HCL PF 2 MG/ML VIAL ONE (17:23)
[2017-01-29] MEDS ORDERED: DO NOT ADM ANY ANTICOAGULANT DRUGS PRN (18:08)
[2017-01-29] MEDS ORDERED: MIDAZOLAM HCL 2 MG/2 ML VIAL ONE (18:12)
[2017-01-29] MEDS ORDERED: *morphine SULFATE 8 MG/ML PERIprocedure ONLY ONE ×2 (18:25→19:16)
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
[2017-01-29] MEDS: traZODone HCL 100 MG TAB PO SCH (21:03)
[2017-01-29] MEDS: QUEtiapine FUMARATE 25 MG TAB PO SCH (21:04)
[2017-01-30] MEDS: SODIUM CHLOR 0.9% 1000 ML INJ 1,000 ML IV SCH ×3 (00:28→22:00)
--- NOTE | 2017-01-30 07:26 | HHI.PR ---
Subjective Remarks Patient is one day s/p left foot wound debridement, Integra skin graft substitute, and VAC placement. Objective Vital Signs Date Time Temp Pulse Resp B/P Pulse Ox O2 Delivery O2 Flow Rate FiO2 01/29/17 23:35 97.7 77 18 111/58 95 01/29/17 20:01 97.7 76 18 120/67 95 01/29/17 19:30 98.2 73 20 131/81 97 Room Air 01/29/17 19:15 73 20 131/81 97 Room Air 01/29/17 19:00 75 20 122/63 97 Room Air 01/29/17 18:45 75 20 143/67 96 Room Air 01/29/17 18:30 77 20 138/64 96 Room Air 01/29/17 18:15 77 20 142/60 100 Room Air 01/29/17 18:07 98.5 76 20 145/67 99 Simple Mask 6 01/29/17 15:56 97.2 73 18 125/62 97 01/29/17 12:00 96.0 55 18 178/97 95 01/29/17 08:00 96.2 75 18 121/67 94 I/O 01/29/17 01/29/17 01/29/17 01/30/17 01/30/17 01/30/17 07:00 15:00 23:00 07:00 15:00 23:00 Intake Total 990 ml 1252 ml 595 ml Output Total 400 ml 5 ml 0 ml Balance 590 ml 1247 ml 595 ml Intake Oral 240 ml 480 ml IV Total 990 ml 312 ml 115 ml Other 700 ml Output Urine Total 400 ml Drainage Total 0 ml 0 ml 0 ml Estimated Blood Loss 5 ml # Voids 4 1 2 # Bowel Movements 1 0 0 Result Diagram: 01/28/17 0650 01/28/17 0645 Procedures I&D L medial rear foot I&D open ankle joint Posterior tibial artery repair Assessment and Plan Assessment and Plan Patient will need to continue the wound VAC therapy for approximately 4 more weeks, the patient is aware of this. Next VAC change will be on 02/03/17, may be able to attempt bedside change as graft is now in place. Two weeks from now ( 02/12/17) would be the earliest he would have a split thickness skin graft, but not every patient requires this. Patient has completed 6 weeks of iv abx since admission. I will defer to ID for any further treatment, but will likely switch to PO as recent cultures have been negative and the wound bed is clean. If patient is able to tolerate VAC changes at home and we are able to arrange [facility] and VAC machine then he may be able to be discharged home soon. I will speak to , his original surgeon, regarding his WBing status, as he is no longer in the posterior splint. Idania Sprague DPM Jan 30, 2017 07:26
[2017-01-30 08:00] VITALS: BP 140/69; PULSE 74; RESP 18; TEMP 96.4; O2SAT 95
[2017-01-30] MEDS: VORICONAZOLE 200 MG TAB PO SCH ×2 (09:15→22:03)
[2017-01-30] MEDS: DOCUSATE SODIUM 50 MG/SENNA 8.6 MG TAB PO SCH ×2 (09:15→21:00)
[2017-01-30] MEDS: SODIUM CHLORIDE 0.9% FLUSH 10 ML FLUSH IV FLUSH SCH ×2 (09:15→22:04)
[2017-01-30] MEDS: CEFEPIME INJ 2,000 MG in SODIUM CHLORIDE 0.9% INJ 100 ML IV SCH ×2 (09:16→16:45)
[2017-01-30 12:00] VITALS: BP 140/70; PULSE 66; RESP 18; TEMP 97.3; O2SAT 95
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
[2017-01-30 16:00] VITALS: BP 171/82; PULSE 71; RESP 18; TEMP 97; O2SAT 95
[2017-01-30 20:00] VITALS: BP 164/100; PULSE 81; RESP 22; TEMP 98.6; O2SAT 95
[2017-01-30] MEDS: QUEtiapine FUMARATE 25 MG TAB PO SCH (22:03)
[2017-01-30] MEDS: traZODone HCL 100 MG TAB PO SCH (22:03)
[2017-01-31] VITALS: BP 135/97; PULSE 69; RESP 22; TEMP 97.8; O2SAT 97
[2017-01-31] MEDS: CEFEPIME INJ 2,000 MG in SODIUM CHLORIDE 0.9% INJ 100 ML IV SCH ×3 (00:16→15:21)
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
[2017-01-31 08:00] VITALS: BP 154/97; PULSE 76; RESP 21; TEMP 97.9; O2SAT 94
[2017-01-31] MEDS: SODIUM CHLOR 0.9% 1000 ML INJ 1,000 ML IV SCH (08:00)
[2017-01-31] MEDS: DOCUSATE SODIUM 50 MG/SENNA 8.6 MG TAB PO SCH ×2 (08:17→21:00)
[2017-01-31] MEDS: VORICONAZOLE 200 MG TAB PO SCH ×2 (08:18→21:37)
[2017-01-31] MEDS: SODIUM CHLORIDE 0.9% FLUSH 10 ML FLUSH IV FLUSH SCH (08:18)
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
[2017-01-31] MEDS ORDERED: ONDANSETRON ODT 4 MG TAB PO PRN (15:45)
[2017-01-31] MEDS: amLODIPine BESYLATE 5 MG TAB PO SCH (16:55)
[2017-01-31 20:00] VITALS: BP 161/90; PULSE 72; RESP 18; TEMP 96.5; O2SAT 96
[2017-01-31] MEDS: traZODone HCL 100 MG TAB PO SCH (21:37)
[2017-01-31] MEDS: QUEtiapine FUMARATE 25 MG TAB PO SCH (21:37)
[2017-02-01 08:00] VITALS: BP 162/96; PULSE 73; RESP 20; TEMP 97.4; O2SAT 95
[2017-02-01] MEDS: VORICONAZOLE 200 MG TAB PO SCH ×2 (08:34→20:55)
[2017-02-01] MEDS: CEFEPIME INJ 2,000 MG in SODIUM CHLORIDE 0.9% INJ 100 ML IV SCH ×5 (08:35→23:59)
[2017-02-01] MEDS: DOCUSATE SODIUM 50 MG/SENNA 8.6 MG TAB PO SCH ×2 (08:35→20:56)
[2017-02-01] MEDS: SODIUM CHLORIDE 0.9% FLUSH 10 ML FLUSH IV FLUSH SCH (08:35)
[2017-02-01] MEDS: amLODIPine BESYLATE 5 MG TAB PO SCH (08:35)
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
[2017-02-01 20:00] VITALS: BP 150/85; PULSE 75; RESP 18; TEMP 96.5; O2SAT 94
[2017-02-01] MEDS: QUEtiapine FUMARATE 25 MG TAB PO SCH (20:55)
[2017-02-01] MEDS: traZODone HCL 100 MG TAB PO SCH (20:56)
[2017-02-02 09:00] VITALS: BP 155/97; PULSE 79; RESP 19; TEMP 96.5; O2SAT 94
[2017-02-02] MEDS: DOCUSATE SODIUM 50 MG/SENNA 8.6 MG TAB PO SCH ×2 (09:00→21:00)
[2017-02-02] MEDS: CEFEPIME INJ 2,000 MG in SODIUM CHLORIDE 0.9% INJ 100 ML IV SCH ×3 (09:49→23:25)
[2017-02-02] MEDS: SODIUM CHLORIDE 0.9% FLUSH 10 ML FLUSH IV FLUSH SCH (09:50)
[2017-02-02] MEDS: VORICONAZOLE 200 MG TAB PO SCH ×2 (09:51→20:19)
[2017-02-02] MEDS: amLODIPine BESYLATE 5 MG TAB PO SCH (09:51)
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
[2017-02-02 20:00] VITALS: BP 125/90; PULSE 71; RESP 21; TEMP 98.1; O2SAT 96
[2017-02-02] MEDS: traZODone HCL 100 MG TAB PO SCH (20:19)
[2017-02-02] MEDS: QUEtiapine FUMARATE 25 MG TAB PO SCH (20:20)
[2017-02-03] MEDS ORDERED: HYDROmorphone HCL PF 2 MG/ML VIAL IV PUSH ONE (07:30)
[2017-02-03] MEDS: DOCUSATE SODIUM 50 MG/SENNA 8.6 MG TAB PO SCH ×2 (08:19→20:44)
[2017-02-03] MEDS: amLODIPine BESYLATE 5 MG TAB PO SCH (08:19)
[2017-02-03] MEDS: SODIUM CHLORIDE 0.9% FLUSH 10 ML FLUSH IV FLUSH SCH (08:19)
[2017-02-03] MEDS: VORICONAZOLE 200 MG TAB PO SCH ×2 (08:19→20:43)
[2017-02-03] MEDS: CEFEPIME INJ 2,000 MG in SODIUM CHLORIDE 0.9% INJ 100 ML IV SCH ×3 (08:20→23:38)
[2017-02-03 09:44] VITALS: BP 146/94; PULSE 81; RESP 17; TEMP 97.9; O2SAT 95
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
--- NOTE | 2017-02-03 10:37 | PD.POD ---
Subjective Podiatric Problems s/p wound vac change L medial heel with integra graft placement Dr Sprague 01/29/17 Pain scale used: 0-10 numeric scale Pain score: 9 (-during VAC change) Past Med/Surg/Social History Social History Smoking Status: Former Smoker Objective Vital Signs Vital Signs Date Time Temp Pulse Resp B/P Pulse Ox O2 Delivery O2 Flow Rate FiO2 02/03/17 09:44 97.9 81 17 146/94 95 02/03/17 08:27 14 02/03/17 07:02 97 Room Air 02/02/17 20:00 98.1 71 21 125/90 96 02/02/17 19:00 Room Air Coded Allergies: Penicillin (Verified Allergy, Unknown, 12/18/16) Medications and IVs Current Medications Medications (Trade) Dose Ordered Sig/Jazmyn Route Start Time Stop Time Status Last Admin (NS Flush) 2 ml UNSCH PRN IVF 12/18/16 11:00 01/23/17 16:51 (Catapres) 0.1 mg Q4HR PRN PO 12/20/16 13:30 01/30/17 22:03 (Gilda-Colace) 2 tab BID PO 12/21/16 11:00 02/03/17 08:19 (Milk Of Magnesia Liq) 30 ml Q6H PRN PO 12/21/16 11:00 Trazodone HCl 100 mg 100 mg HS PO 12/25/16 21:00 02/02/17 20:19 (Maxipime Inj/NS Inj) 100 ml @ 200 mls/hr Q8H IV 12/25/16 16:00 02/04/17 15:59 02/03/17 08:20 (SEROquel) 50 mg HS PO 01/01/17 21:00 02/02/17 20:20 (Narcan Inj) 0.4 mg UNSCH PRN IV 01/12/17 16:00 (NS Flush) See Protocol DAILY IV FLUSH 01/28/17 09:00 02/03/17 08:19 (NS Flush) See Protocol UNSCH PRN IV FLUSH 01/27/17 12:00 02/01/17 23:59 (Heparin Central Flush) See Protocol DAILY IV FLUSH 01/28/17 09:00 02/03/17 08:19 (Heparin Central Flush) See Protocol UNSCH PRN IV FLUSH 01/27/17 12:00 (NS Flush) UNSCH PRN IV FLUSH 01/27/17 12:00 (Vfend) 200 mg Q12HR PO 01/28/17 21:00 02/03/17 08:19 (Norvasc) 5 mg DAILY PO 01/31/17 17:00 02/03/17 08:19 (Zofran Odt) 4 mg Q6H PRN PO 01/31/17 15:45 (Roxicodone) 5 mg Q6HR PRN PO 02/02/17 11:45 Physical Exam Remarks L medial heel with integra graft in place. Wound appears viable with no maceration to skin edges. Wound vac changed without event and functioning properly at 125mmHg medium continuous. Assessment & Plan A/P L foot medial foot wound Ordering T//Thu vac changes per nursing with nonadherent gauze dressing ( NOT telfa, must be adaptic or vaseline gauze), followed by medium granufoam vac. Continue dressing changes as ordered upon d/c. Consulting plastic surgery to evaluate wound for further coverage. Dorcas Wilder DPM Feb 03, 2017 10:37
[2017-02-03 20:06] VITALS: BP 128/80; PULSE 78; RESP 21; TEMP 97.6; O2SAT 97
[2017-02-03] MEDS: traZODone HCL 100 MG TAB PO SCH (20:43)
[2017-02-03] MEDS: QUEtiapine FUMARATE 25 MG TAB PO SCH (20:43)
[2017-02-04] MEDS: DOCUSATE SODIUM 50 MG/SENNA 8.6 MG TAB PO SCH ×2 (07:58→20:42)
[2017-02-04] MEDS: amLODIPine BESYLATE 5 MG TAB PO SCH (07:58)
[2017-02-04] MEDS: VORICONAZOLE 200 MG TAB PO SCH ×2 (07:58→20:42)
[2017-02-04] MEDS: CEFEPIME INJ 2,000 MG in SODIUM CHLORIDE 0.9% INJ 100 ML IV SCH (07:58)
[2017-02-04] MEDS: SODIUM CHLORIDE 0.9% FLUSH 10 ML FLUSH IV FLUSH SCH (07:59)
[2017-02-04 08:00] VITALS: BP 143/107; PULSE 88; RESP 19; TEMP 97.3; O2SAT 95
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
[2017-02-04 20:22] VITALS: BP 142/86; PULSE 84; RESP 16; TEMP 97.5; O2SAT 97
[2017-02-04] MEDS: traZODone HCL 100 MG TAB PO SCH (20:42)
[2017-02-04] MEDS: QUEtiapine FUMARATE 25 MG TAB PO SCH (20:42)
[2017-02-05 08:00] VITALS: BP 138/84; PULSE 84; RESP 20; TEMP 97.7; O2SAT 94
[2017-02-05] MEDS: SODIUM CHLORIDE 0.9% FLUSH 10 ML FLUSH IV FLUSH SCH (08:49)
[2017-02-05] MEDS: VORICONAZOLE 200 MG TAB PO SCH (08:49)
[2017-02-05] MEDS: amLODIPine BESYLATE 5 MG TAB PO SCH (08:49)
[2017-02-05] MEDS: DOCUSATE SODIUM 50 MG/SENNA 8.6 MG TAB PO SCH ×2 (08:50→20:41)
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
--- NOTE | 2017-02-05 10:33 | HHI.FF ---
Face to Face Verification Diagnosis: (1) Fracture, calcaneus, open (2) Wound infection, posttraumatic Home Health Nursing Order: Medical education Signs/symptoms of disease process Wound care and dressing changes Nursing assessment with vital signs Instructions: Left foot: T/Th/Sat vac changes with nonadherent gauze dressing (must be adaptic or vaseline gauze), followed by medium granufoam vac. I have seen patient Major Murray Jr Analia on 02/05/17. My clinical findings support the need for the requested home health care services because: Ltd mobility - disease progression (NWB LLE) I certify that my clinical findings support that this patient is homebound because: Unsafe to leave home unassisted Amrita Murray Feb 05, 2017 10:32
[2017-02-05] MEDS ORDERED: QUET1TAB7 PO (10:45)
[2017-02-05] MEDS ORDERED: WALKER WHEELS/F1 MIS (10:45)
[2017-02-05] MEDS ORDERED: TRAZ50TA12 PO (10:45)
[2017-02-05] MEDS ORDERED: AMLO5 PO (10:45)
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
[2017-02-05 20:00] VITALS: BP 139/89; PULSE 93; RESP 20; TEMP 95.7; O2SAT 96
[2017-02-05] MEDS: traZODone HCL 100 MG TAB PO SCH (20:40)
[2017-02-05] MEDS: QUEtiapine FUMARATE 25 MG TAB PO SCH (20:41)
[2017-02-06] MEDS: DOCUSATE SODIUM 50 MG/SENNA 8.6 MG TAB PO SCH (09:00)
[2017-02-06 09:53] VITALS: BP 140/88; PULSE 89; RESP 16; TEMP 96.2; O2SAT 96
[2017-02-06] MEDS: amLODIPine BESYLATE 5 MG TAB PO SCH (10:34)
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
[2017-02-17] MEDS ORDERED: QUET1TAB7 PO (12:12)
[2017-02-17] MEDS ORDERED: TRAZ50TA12 PO (12:12)
[2017-02-17] MEDS ORDERED: AMLO5 PO (12:12)
== END 2017-02-06 16:19 | disposition home or self-care (01) | DRG 464 ==
LOC: NEPC 10:42 → NEDA 13:40 → N06B 20:41 → PH5A 01-30 19:40
PROVIDERS: ADMIT Hospitalist; ATTEND Hospitalist
PROC: 0JDR0ZZ Extraction of Left Foot Subcutaneous Tissue and Fascia, Open Approach (ICD-10-PCS; 2016-12-18)
PROC: 04Q Lower Arteries, Repair (ICD-10-PCS; principal; 2016-12-18 16:56)
PROC: 0HDNXZZ Extraction of Left Foot Skin, External Approach (ICD-10-PCS; 2016-12-20)
PROC: 0HQNXZZ Repair Left Foot Skin, External Approach (ICD-10-PCS; 2016-12-20)
PROC: 0HDNXZZ Extraction of Left Foot Skin, External Approach (ICD-10-PCS; 2016-12-23)
PROC: 0HDNXZZ Extraction of Left Foot Skin, External Approach (ICD-10-PCS; 2016-12-25)
PROC: 0HDNXZZ Extraction of Left Foot Skin, External Approach (ICD-10-PCS; 2016-12-28)
PROC: 0JDR0ZZ Extraction of Left Foot Subcutaneous Tissue and Fascia, Open Approach (ICD-10-PCS; 2016-12-31)
PROC: 0HDNXZZ Extraction of Left Foot Skin, External Approach (ICD-10-PCS; 2016-12-31)
PROC: 0HDNXZZ Extraction of Left Foot Skin, External Approach (ICD-10-PCS; 2017-01-05)
PROC: 2W0TX6Z Change Pressure Dressing on Left Foot (ICD-10-PCS; 2017-01-12)
PROC: 2W0TX6Z Change Pressure Dressing on Left Foot (ICD-10-PCS; 2017-01-15)
PROC: 2W0TX6Z Change Pressure Dressing on Left Foot (ICD-10-PCS; 2017-01-23)
PROC: 0HDNXZZ Extraction of Left Foot Skin, External Approach (ICD-10-PCS; 2017-01-26)
PROC: 0HRNXK4 Replacement of Left Foot Skin with Nonautologous Tissue Substitute, Partial Thickness, External Approach (ICD-10-PCS; 2017-01-29)
PROC: 0HDNXZZ Extraction of Left Foot Skin, External Approach (ICD-10-PCS; 2017-01-29)
PROC: 0HBNXZZ Excision of Left Foot Skin, External Approach (ICD-10-PCS; 2017-01-30)
PROC: 0HBNXZZ Excision of Left Foot Skin, External Approach (ICD-10-PCS; 2017-01-30)
DX: S92.002B Unspecified fracture of left calcaneus, initial encounter for open fracture (principal); S82.52XB Displaced fracture of medial malleolus of left tibia, initial encounter for open fracture type I or II; D62 Acute posthemorrhagic anemia; S85.172A Laceration of posterior tibial artery, left leg, initial encounter; I10 Essential (primary) hypertension; V29.49XA Motorcycle driver injured in collision with other motor vehicles in traffic accident, initial encounter; Y92.410 Unspecified street and highway as the place of occurrence of the external cause; Y93.89 Activity, other specified; Y99.9 Unspecified external cause status; Z88.0 Allergy status to penicillin; S86.012A Strain of left Achilles tendon, initial encounter; S96.812A Strain of other specified muscles and tendons at ankle and foot level, left foot, initial encounter; Z87.891 Personal history of nicotine dependence; G47.30 Sleep apnea, unspecified; E66.9 Obesity, unspecified; S91.012A Laceration without foreign body, left ankle, initial encounter; F60.9 Personality disorder, unspecified; Z91.5 Personal history of self-harm; Z81.8 Family history of other mental and behavioral disorders; F51.5 Nightmare disorder; G47.00 Insomnia, unspecified; F22 Delusional disorders; F51.3 Sleepwalking [somnambulism]; F43.25 Adjustment disorder with mixed disturbance of emotions and conduct
CPT/HCPCS: 36569; 70450; 71010; 72125; 72170; 73080; 73564; 73590; 73600; 73610; 73620; 73630; 73700; 73718; 73721; 76000; 76937; 80048; 80053; 80069; 80170; 80202; 80307; 81001; 82565; 83735; 84100; 85014; 85018; 85025; 85027; 85610; 85730; 86403; 86850; 86900; 86901; 87015; 87070; 87077; 87102; 87106; 87107; 87116; 87153; 87186; 87205; 87206; 90471; 90715; 93005; 96365; 96375; 96376; C1757; J0131; J0690; J0692; J1100; J1170; J1580; J1642; J2175; J2250; J2270; J2370; J2405; J3010; J3370; J7030; J7040; J7120; Q4104

== ENCOUNTER 2017-11-09 19:33 | Emergency (ER) | payer OTHER ==
[~2017-11-09 19:33] MED LIST: AMLO5 PO; QUET1TAB7 PO; TRAZ50TA12 PO; WALKER WHEELS/F1 MIS
[2017-11-09 19:53] VITALS: BP 183/115; PULSE 88; RESP 26; TEMP 99.1; O2SAT 96
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
[2017-11-09] MEDS ORDERED: KETOROLAC TROMETHAMINE 60 MG/2 ML (IM) VIAL IM ONE (23:00)
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
[2017-11-09] MEDS ORDERED: ACETAMINOPHEN/HYDROcodone 325 MG/5 MG TAB PO ONE (23:45)
== END 2017-11-10 00:10 | disposition home or self-care (01) ==
LOC: NED 19:33 → NEPD 11-10 00:10
DX: M19.012 Primary osteoarthritis, left shoulder (principal); Z79.899 Other long term (current) drug therapy; Z88.0 Allergy status to penicillin; V03.90XA Pedestrian on foot injured in collision with car, pick-up truck or van, unspecified whether traffic or nontraffic accident, initial encounter
CPT/HCPCS: 73030; 96372; 99283; J1885